=== PATIENT | female | born 1935 | race Caucasian/White ===

== ENCOUNTER → 2021-10-05 13:26 | Outpatient (CLI) | payer MEDICARE, OTHER, SELFPAY ==
--- NOTE | 2021-10-05 | DI.CT.S_ITS ---
PROCEDURE: CT SOFT TISSUE NECK W CON INDICATIONS: MALIGNANT MELANOMA TECHNIQUE: After the administration of intravenous contrast, 3.0 mm axial sections acquired from the sella to the aortic arch. Additional oblique axial 3.0 mm sections acquired through the pharynx. 3 mm thick coronal and sagittal reformats were generated. For radiation dose reduction, the following was used: automated exposure control. COMPARISON: [facility], CT, CT CHEST ABD PEL W CON, 10/05/2021, 15:49. [facility], CT, CT HEAD/BRAIN WO/W CON, 10/05/2021, 15:49. FINDINGS: Image quality: There is artifact associated with the metallic hardware. Lymph nodes: No enlarged lymph nodes seen throughout the neck. Vessels: Visualized vasculature appears patent. Incidental note is made of a common origin of the right brachiocephalic artery and the left common carotid artery (bovine type arch). This is considered to be a developmental variant of no clinical consequence. Neck spaces: The oropharynx, nasopharynx, and pharynx demonstrate no mucosal lesions. The vocal cords, false vocal cords, pyriform sinuses, epiglottis, vallecula, and tongue base all appear normal. Extramucosal spaces appear unremarkable. Glands: The parotid and submandibular glands appear normal. Thyroid gland is prominent, without a focally suspicious lesion. Miscellaneous: Visualized brain and orbits appear normal. Lung apices appear clear. Superficial soft tissues appear normal. Bones: No suspicious bony lesions. Visualized sinuses and mastoids appear unremarkable. Left shoulder arthroplasty hardware is seen. Focal right shoulder degenerative change is seen. Moderate cervical spine degenerative change can be seen. IMPRESSION: Limited study demonstrating no findings of metastatic disease or enlarged lymph nodes. Incidental note is made of: Prominent thyroid gland. Left shoulder arthroplasty hardware Bovine type aortic branching pattern. Dictated by: Darron Dumont M.D. on 10/05/2021 at 16:30 Approved by: Darron Dumont M.D. on 10/05/2021 at 16:32
--- NOTE | 2021-10-05 13:34 | DI.CT.S_ITS ---
PROCEDURE: CT CHEST ABD PEL W CON INDICATIONS: Malignant melanoma of other parts of face TECHNIQUE: After the administration of oral and intravenous contrast, axial sections acquired from the supraclavicular neck to the pubic symphysis. Coronal and sagittal reformats were performed. For radiation dose reduction, the following was used: automated exposure control, adjustment of mA and/or kV according to patient size. COMPARISON: [facility], CT, CT HEAD/BRAIN WO/W CON, 10/05/2021, 15:49. [facility], CT, CT SOFT TISSUE NECK W CON, 10/05/2021, 15:49. FINDINGS: Image quality: There is artifact associated with the metallic hardware. CHEST: Lower Neck: No enlarged lymph nodes. Thyroid: Thyroid is prominent size, without focal lesion. Axillae: No enlarged lymph nodes. Chest Wall: Unremarkable. Lungs and Airways: No consolidation or suspicious nodules. Mild scattered areas of ground-glass opacity can be seen within the lungs. Pleura: No pneumothorax or pleural effusions. Heart: Heart size is normal. No pericardial effusion. Thoracic Vessels: The aorta and pulmonary arteries demonstrate normal size. Mediastinum and Margaret: No enlarged lymph nodes. Esophagus: No wall thickening. No hiatal hernia. ABDOMEN: Liver: There is a right anterior water density liver cyst, without enhancement measures 2.6 cm and 14 Hounsfield units. Gallbladder: Removed Biliary ducts: The common bile duct is prominent at 1.6 cm. Pancreas: Unremarkable. Spleen: Unremarkable. Adrenal Glands: Unremarkable. Kidneys and Ureters: At the inferior pole of the left kidney, there is a simple cyst seen that measures 12 Hounsfield units and 5.5 cm. The kidneys enhance symmetrically and demonstrate no hydronephrosis. Stomach and Bowel: Stomach, small bowel loops, and colon are unremarkable. Distal colonic diverticulosis is seen, without findings of active diverticulitis. Peritoneum: No abnormal intraperitoneal fluid. No free air. Ventral Wall: No hernia. Abdominal Nodes: No retroperitoneal or mesenteric adenopathy by size criteria. Vessels: Aorta and inferior vena cava are normal in size. Atherosclerotic calcification is noted. PELVIS: Pelvic Organs: The uterus is atrophic and considered to be normal for age. No adnexal masses are seen on either side. Bladder: Unremarkable. Pelvic Nodes: No enlarged lymph nodes. Miscellaneous: No inguinal hernias are seen. Bones: Degenerative changes are seen throughout, including involving the right shoulder. Left shoulder arthroplasty hardware is seen. Accentuated thoracic kyphosis is seen. There is moderate dextroconvex thoracolumbar scoliosis. Left hip arthroplasty hardware is seen. IMPRESSION: No findings of metastatic disease are seen. No suspicious pulmonary nodules are seen. Scattered bowel areas of ground-glass opacity can be seen within the lungs, which are most likely related to mild pulmonary edema. Cholecystectomy, with a prominent common bile duct, measuring 1.6 cm. Incidental note is made of: Prominent thyroid size, without a significant focal abnormality seen. Focal right shoulder degenerative change Left shoulder arthroplasty hardware Prominent simple left renal cyst Diverticulosis, without active diverticulitis Moderate dextroconvex thoracolumbar scoliosis Left hip arthroplasty hardware Dictated by: Darron Dumont M.D. on 10/05/2021 at 15:47 Approved by: Darron Dumont M.D. on 10/05/2021 at 15:52
--- NOTE | 2021-10-05 13:34 | DI.CT.S_ITS ---
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 For radiation dose reduction, the following was used: automated exposure control, adjustment of mA and/or kV according to patient size. COMPARISON: [facility], CT, CT SOFT TISSUE NECK W CON, 10/05/2021, 15:49. [facility], CT, CT CHEST ABD PEL W CON, 10/05/2021, 15:49. FINDINGS: Image quality: Excellent. CSF spaces: Basal cisterns are patent. No extra-axial fluid collections. Ventricles are symmetric in size and shape. Brain: No midline shift. No intracranial bleeds or masses. No abnormal intracranial enhancement. There is cerebral volume loss for age. There is periventricular white matter chronic small vessel ischemic change. There is intracranial internal carotid artery atherosclerosis. Skull and face: There is a prominently enhancing soft tissue scalp mass seen involving the left temporal region, as on series 2 image 19 and on series 9, image 15 that measures up to 2.7 cm. Calvarium and visualized facial bones appear intact, without suspicious lesions. Sinuses: Visualized sinuses and mastoids are clear. IMPRESSION: Left temporal scalp mass seen which demonstrates prominent enhancement and measures up to 2.7 cm, which is consistent with this patient's known primary mass. To the limits of CT, no intracranial masses or abnormal enhancement can be seen. Dictated by: Darron Dumont M.D. on 10/05/2021 at 15:45 Approved by: Darron Dumont M.D. on 10/05/2021 at 15:47
[2021-10-05 14:02] LABS: BUN Creatinine Ratio 34.4 (6-22); Blood Urea Nitrogen 31 mg/dL (7-17); Estimated Glomerular Filt Rate > 60 mL/min (>60)
== END ==
PROVIDERS: PCP Student in an Organized Health Care Education/Training Program; Referring Provider Dermatology; Visit Provider Dermatology
DX: C43.4 Malignant melanoma of scalp and neck; N28.1 Cyst of kidney, acquired; K57.90 Diverticulosis of intestine, part unspecified, without perforation or abscess without bleeding; Z90.49 Acquired absence of other specified parts of digestive tract; Z96.612 Presence of left artificial shoulder joint; Z96.642 Presence of left artificial hip joint
CPT/HCPCS: 36415; 70470; 70491; 71260; 74177; 82565; 84520; Q9967

== ENCOUNTER → 2021-10-14 13:50 | Outpatient (CLI) | payer MEDICARE, OTHER, SELFPAY | PROVIDERS: PCP Student in an Organized Health Care Education/Training Program; Referring Provider Dermatology; Visit Provider Family Medicine | DX: T81.89XA Other complications of procedures, not elsewhere classified, initial encounter (principal); S01.00XA Unspecified open wound of scalp, initial encounter; M06.9 Rheumatoid arthritis, unspecified; Z79.899 Other long term (current) drug therapy; Z85.820 Personal history of malignant melanoma of skin | CPT/HCPCS: 11042; 11045; 99212 ==

== ENCOUNTER → 2021-10-19 11:35 | Outpatient (CLI) | payer MEDICARE, OTHER, SELFPAY | PROVIDERS: PCP Student in an Organized Health Care Education/Training Program; Referring Provider Student in an Organized Health Care Education/Training Program; Visit Provider Family Medicine | DX: T81.89XA Other complications of procedures, not elsewhere classified, initial encounter (principal); S01.00XA Unspecified open wound of scalp, initial encounter; M06.9 Rheumatoid arthritis, unspecified; Z85.820 Personal history of malignant melanoma of skin; Z79.899 Other long term (current) drug therapy | CPT/HCPCS: 11042; 97607 ==

== ENCOUNTER → 2021-10-21 11:04 | Outpatient (CLI) | payer MEDICARE, OTHER, SELFPAY | PROVIDERS: PCP Student in an Organized Health Care Education/Training Program; Referring Provider Dermatology; Visit Provider Family Medicine | DX: T81.89XA Other complications of procedures, not elsewhere classified, initial encounter (principal); S01.00XA Unspecified open wound of scalp, initial encounter | CPT/HCPCS: 97607 ==

== ENCOUNTER → 2021-10-26 13:10 | Outpatient (CLI) | payer MEDICARE, OTHER, SELFPAY | PROVIDERS: PCP Student in an Organized Health Care Education/Training Program; Referring Provider Student in an Organized Health Care Education/Training Program; Visit Provider Family Medicine | DX: T81.89XA Other complications of procedures, not elsewhere classified, initial encounter (principal); S01.00XA Unspecified open wound of scalp, initial encounter; M06.9 Rheumatoid arthritis, unspecified; Z85.820 Personal history of malignant melanoma of skin; Z79.899 Other long term (current) drug therapy | CPT/HCPCS: 97607; 99212 ==

== ENCOUNTER → 2021-11-02 15:10 | Outpatient (CLI) | payer MEDICARE, OTHER, SELFPAY | PROVIDERS: PCP Student in an Organized Health Care Education/Training Program; Referring Provider Dermatology; Visit Provider Family Medicine | DX: T81.89XA Other complications of procedures, not elsewhere classified, initial encounter (principal); S01.00XA Unspecified open wound of scalp, initial encounter; M06.9 Rheumatoid arthritis, unspecified; Z85.820 Personal history of malignant melanoma of skin; Z79.899 Other long term (current) drug therapy | CPT/HCPCS: 99212; 99213 ==

== ENCOUNTER → 2021-11-09 12:00 | Outpatient (CLI) | payer MEDICARE, OTHER, SELFPAY | PROVIDERS: PCP Student in an Organized Health Care Education/Training Program; Referring Provider Dermatology; Visit Provider Family Medicine | DX: T81.89XA Other complications of procedures, not elsewhere classified, initial encounter (principal); S01.00XA Unspecified open wound of scalp, initial encounter; M06.9 Rheumatoid arthritis, unspecified; Z85.820 Personal history of malignant melanoma of skin | CPT/HCPCS: 11042; 99212 ==

== ENCOUNTER → 2021-11-12 13:31 | Outpatient (CLI) | payer MEDICARE, OTHER, SELFPAY | PROVIDERS: PCP Student in an Organized Health Care Education/Training Program; Referring Provider Student in an Organized Health Care Education/Training Program; Visit Provider Family Medicine | DX: T81.31XA Disruption of external operation (surgical) wound, not elsewhere classified, initial encounter (principal); S01.80XA Unspecified open wound of other part of head, initial encounter | CPT/HCPCS: 99212 ==

== ENCOUNTER → 2021-11-17 14:57 | Outpatient (CLI) | payer MEDICARE, OTHER, SELFPAY | PROVIDERS: PCP Student in an Organized Health Care Education/Training Program; Referring Provider Student in an Organized Health Care Education/Training Program; Visit Provider Family Medicine | DX: T81.89XA Other complications of procedures, not elsewhere classified, initial encounter (principal); S01.00XA Unspecified open wound of scalp, initial encounter | CPT/HCPCS: 99213 ==

== ENCOUNTER → 2021-12-01 15:28 | Outpatient (CLI) | payer MEDICARE, OTHER, SELFPAY | PROVIDERS: PCP Student in an Organized Health Care Education/Training Program; Referring Provider Student in an Organized Health Care Education/Training Program; Visit Provider Family Medicine | DX: S01.00XA Unspecified open wound of scalp, initial encounter (principal); M06.9 Rheumatoid arthritis, unspecified; Z85.820 Personal history of malignant melanoma of skin | CPT/HCPCS: 97607; 99212 ==

== ENCOUNTER → 2021-12-07 13:36 | Outpatient (CLI) | payer MEDICARE, OTHER, SELFPAY | PROVIDERS: PCP Student in an Organized Health Care Education/Training Program; Referring Provider Student in an Organized Health Care Education/Training Program; Visit Provider Family Medicine | DX: S01.00XA Unspecified open wound of scalp, initial encounter (principal); Z85.820 Personal history of malignant melanoma of skin; M06.9 Rheumatoid arthritis, unspecified | CPT/HCPCS: 99212 ==

== ENCOUNTER → 2021-12-15 14:26 | Outpatient (CLI) | payer MEDICARE, OTHER, SELFPAY | PROVIDERS: PCP Student in an Organized Health Care Education/Training Program; Referring Provider Student in an Organized Health Care Education/Training Program; Visit Provider Family Medicine | DX: S01.00XA Unspecified open wound of scalp, initial encounter (principal); Z85.820 Personal history of malignant melanoma of skin; M06.9 Rheumatoid arthritis, unspecified | CPT/HCPCS: 99212; 99213 ==

== ENCOUNTER → 2021-12-30 15:26 | Outpatient (CLI) | payer MEDICARE, OTHER, SELFPAY | PROVIDERS: PCP Student in an Organized Health Care Education/Training Program; Referring Provider Dermatology; Visit Provider Family Medicine | DX: S01.00XA Unspecified open wound of scalp, initial encounter (principal); Z85.820 Personal history of malignant melanoma of skin; M06.9 Rheumatoid arthritis, unspecified | CPT/HCPCS: 99212; 99213 ==

== ENCOUNTER → 2022-01-13 14:11 | Outpatient (CLI) | payer MEDICARE, OTHER, SELFPAY | PROVIDERS: PCP Student in an Organized Health Care Education/Training Program; Referring Provider Student in an Organized Health Care Education/Training Program; Visit Provider Family Medicine | DX: S01.00XA Unspecified open wound of scalp, initial encounter (principal); Z85.820 Personal history of malignant melanoma of skin; M06.9 Rheumatoid arthritis, unspecified | CPT/HCPCS: 97607; 99212; 99213 ==

== ENCOUNTER → 2022-01-20 11:41 | Outpatient (CLI) | payer MEDICARE, OTHER, SELFPAY | PROVIDERS: PCP Student in an Organized Health Care Education/Training Program; Referring Provider Student in an Organized Health Care Education/Training Program; Visit Provider Family Medicine | DX: S01.00XA Unspecified open wound of scalp, initial encounter (principal); T81.89XA Other complications of procedures, not elsewhere classified, initial encounter; L08.9 Local infection of the skin and subcutaneous tissue, unspecified; M06.9 Rheumatoid arthritis, unspecified; Z85.820 Personal history of malignant melanoma of skin | CPT/HCPCS: 11042; 87070; 87075; 87077; 87186; 87205; 99213 ==

== ENCOUNTER → 2022-01-27 14:01 | Outpatient (CLI) | payer MEDICARE, OTHER, SELFPAY | PROVIDERS: PCP Student in an Organized Health Care Education/Training Program; Referring Provider Student in an Organized Health Care Education/Training Program; Visit Provider Family Medicine | DX: S01.00XA Unspecified open wound of scalp, initial encounter (principal); Z85.820 Personal history of malignant melanoma of skin; M06.9 Rheumatoid arthritis, unspecified; L08.9 Local infection of the skin and subcutaneous tissue, unspecified; B95.62 Methicillin resistant Staphylococcus aureus infection as the cause of diseases classified elsewhere | CPT/HCPCS: 99213; 99214 ==

== ENCOUNTER → 2022-02-03 14:56 | Outpatient (CLI) | payer MEDICARE, OTHER, SELFPAY | PROVIDERS: PCP Student in an Organized Health Care Education/Training Program; Referring Provider Student in an Organized Health Care Education/Training Program; Visit Provider Family Medicine | DX: S01.00XA Unspecified open wound of scalp, initial encounter (principal); M06.9 Rheumatoid arthritis, unspecified; L08.9 Local infection of the skin and subcutaneous tissue, unspecified; B95.62 Methicillin resistant Staphylococcus aureus infection as the cause of diseases classified elsewhere; Z85.820 Personal history of malignant melanoma of skin | CPT/HCPCS: 99212; 99213 ==

== ENCOUNTER → 2022-02-10 11:29 | Outpatient (CLI) | payer MEDICARE, OTHER, SELFPAY | PROVIDERS: PCP Student in an Organized Health Care Education/Training Program; Referring Provider Student in an Organized Health Care Education/Training Program; Visit Provider Family Medicine | DX: S01.00XA Unspecified open wound of scalp, initial encounter (principal); M06.9 Rheumatoid arthritis, unspecified; Z85.820 Personal history of malignant melanoma of skin | CPT/HCPCS: 97597; 99212 ==

== ENCOUNTER → 2022-02-17 09:50 | Outpatient (CLI) | payer MEDICARE, OTHER, SELFPAY | PROVIDERS: PCP Family Medicine; Referring Provider Family Medicine; Visit Provider Family Medicine | DX: S01.00XA Unspecified open wound of scalp, initial encounter (principal); M06.9 Rheumatoid arthritis, unspecified; Z85.820 Personal history of malignant melanoma of skin | CPT/HCPCS: 99212 ==

== ENCOUNTER → 2022-02-24 10:36 | Outpatient (CLI) | payer MEDICARE, OTHER, SELFPAY | PROVIDERS: PCP Family Medicine; Referring Provider Dermatology; Visit Provider Family Medicine | DX: S01.00XA Unspecified open wound of scalp, initial encounter (principal); Z85.820 Personal history of malignant melanoma of skin; M06.9 Rheumatoid arthritis, unspecified | CPT/HCPCS: 15275; Q4196 ==

== ENCOUNTER → 2022-03-03 10:05 | Outpatient (CLI) | payer MEDICARE, OTHER, SELFPAY | PROVIDERS: PCP Family Medicine; Referring Provider Family Medicine; Visit Provider Family Medicine | DX: S01.00XA Unspecified open wound of scalp, initial encounter (principal); T81.89XA Other complications of procedures, not elsewhere classified, initial encounter; Z85.820 Personal history of malignant melanoma of skin; M06.9 Rheumatoid arthritis, unspecified | CPT/HCPCS: 15275; Q4196 ==

== ENCOUNTER → 2022-03-10 09:49 | Outpatient (CLI) | payer MEDICARE, OTHER, SELFPAY | PROVIDERS: PCP Family Medicine; Referring Provider Family Medicine; Visit Provider Family Medicine | DX: S01.00XD Unspecified open wound of scalp, subsequent encounter (principal); Z85.820 Personal history of malignant melanoma of skin; M06.9 Rheumatoid arthritis, unspecified | CPT/HCPCS: 99212; 99213 ==

== ENCOUNTER → 2022-03-21 08:55 | Outpatient (CLI) | payer MEDICARE, OTHER, SELFPAY ==
--- NOTE | 2022-03-21 | DI.US.S_ITS ---
PROCEDURE: US ARTERIAL DUPLEX LE LT INDICATIONS: DECREASED PEDAL PULSE TECHNIQUE: Color and pulse Doppler interrogation was performed of the left lower extremity arterial system, with image documentation. COMPARISON: None. FINDINGS: Limitations are present secondary to body habitus and patient positioning factors. Common femoral artery: 178 cm/sec, with triphasic flow. Deep femoral artery: 113 cm/sec, with triphasic flow. Proximal superficial femoral artery: 122 cm/sec, with biphasic flow. Mid superficial femoral artery: 111 cm/sec, with biphasic flow. Distal superficial femoral artery: 67 cm/sec, with biphasic flow. Popliteal artery: 75 cm/sec, with biphasic flow. Posterior tibial artery: 71 cm/sec, with biphasic flow. Anterior tibial artery/dorsalis pedis: 47 cm/sec, with monophasic flow. Padgett-scale imaging description: Moderate plaque IMPRESSION: 1. No significant outflow stenosis . 2. 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 Dictated by: Dwight Young M.D. on 03/21/2022 at 10:29 Approved by: Dwight Young M.D. on 03/21/2022 at 10:31
--- NOTE | 2022-03-21 | DI.RAD.S_ITS ---
PROCEDURE: XR KNEE RT 3V INDICATIONS: right knee pain TECHNIQUE: 3 views of the knee were acquired. COMPARISON: None. FINDINGS: Bones: No fractures or dislocations. No suspicious bony lesions. Knee arthroplasty is present. Hardware is intact. Soft tissues: No joint effusion. No suspicious soft tissue calcifications. IMPRESSION: Arthroplasty as above. Otherwise, unremarkable exam. Dictated by: Tania Dockery M.D. on 03/21/2022 at 15:14 Approved by: Tania Dockery M.D. on 03/21/2022 at 15:17
== END ==
PROVIDERS: PCP Family Medicine; Referring Provider Podiatrist; Visit Provider Podiatrist
DX: I70.202 Unspecified atherosclerosis of native arteries of extremities, left leg (principal); R09.89 Other specified symptoms and signs involving the circulatory and respiratory systems; M25.561 Pain in right knee; Z96.653 Presence of artificial knee joint, bilateral
CPT/HCPCS: 73562; 93926

== ENCOUNTER → 2022-04-11 16:14 | Outpatient (ROUT) | payer MEDICARE, OTHER, SELFPAY | PROVIDERS: PCP Family Medicine; Visit Provider Physician Assistant | DX: N89.8 Other specified noninflammatory disorders of vagina (principal) | CPT/HCPCS: 87798 ==

== ENCOUNTER 2022-04-18 07:46 | Observation (INO) | payer MEDICARE, OTHER, SELFPAY ==
[2022-04-18] VITALS (21 sets, daily range): BP systolic 111–146; BP diastolic 56–70; PULSE 66–97; RESP 18; TEMP 36.8; O2SAT 88–99; BMI 27.4
--- NOTE | 2022-04-18 07:51 | DI.RAD.S_ITS ---
PROCEDURE: XR HIP W PEL IF DONE LT 2V INDICATIONS: fall TECHNIQUE: AP pelvis with lateral view(s) of the left hip(s) and left femur. COMPARISON: [facility], CT, CT CHEST ABD PEL W CON, 10/05/2021, 15:49. FINDINGS: Bones: Left hip arthroplasty projects in the expected location. Plate and screw fixation along the left femur. Left knee arthroplasty. Fracture of the distal left femur which appears chronic. Pelvic ring appears intact. No suspicious bony lesions. Moderate right hip DJD. Soft tissues: The visualized bowel gas pattern is normal. No suspicious soft tissue calcifications. IMPRESSION: No acute fracture is identified. Left hip arthroplasty. Left femur ORIF. Left knee arthroplasty. Chronic appearing fracture of the distal left femur. Dictated by: Francesco Lorenzana M.D. on 04/18/2022 at 8:42 Approved by: Francesco Lorenzana M.D. on 04/18/2022 at 8:46
--- NOTE | 2022-04-18 07:51 | DI.RAD.S_ITS ---
PROCEDURE: XR CHEST 1V INDICATIONS: fall on the TECHNIQUE: One view of the chest was acquired. COMPARISON: [facility], CT, CT CHEST ABD PEL W CON, 10/05/2021, 15:49. FINDINGS: Surgical changes and devices: Left shoulder arthroplasty. Lungs and pleura: Lungs are clear. No pleural effusions or pneumothorax. Mediastinum: Mediastinal contours appear normal. Heart size is normal. Bones and chest wall: No suspicious bony lesions. Right shoulder DJD. Overlying soft tissues appear unremarkable. IMPRESSION: No acute cardiopulmonary abnormality. Dictated by: Francesco Lorenzana M.D. on 04/18/2022 at 8:40 Approved by: Francesco Lorenzana M.D. on 04/18/2022 at 8:42
--- NOTE | 2022-04-18 07:53 | ED_ITS ---
HPI - Fall <DO Thuan Barton Last Filed: 04/20/22 07:14> General Chief Complaint: Fall Stated Complaint: Fall Time Seen by Provider: 04/18/22 07:51 History of Present Illness HPI Narrative: Patient is a 87-year-old female with history of anemia, anxiety, osteoarthritis, osteopenia presenting today after a ground level fall 2 nights ago. She says she was using her walker in the shower she had assistance she went to kick a trash can when she landed on her left hip. She has been ambulatory but it is quite painful for her. She denies hitting her head no loss of consciousness. She is not on any antiplatelet or anticoagulation medication. She has minimal neck pain. No shortness of breath dizziness lightheadedness chest pain or palpitations. She says every time she tries to walk now it is excruciating and she is unable to bear weight. She previously had hip replacement. Related Data Home Medications Medication Instructions Recorded Confirmed ascorbic acid (vitamin C) 250 mg 250 mg PO QAM 11/24/21 04/18/22 tablet cholecalciferol (vitamin D3) 50 50 mcg PO DAILY 11/24/21 04/18/22 mcg (2,000 unit) capsule famotidine 20 mg tablet 20 mg PO QAM 11/24/21 04/18/22 folic acid 1 mg tablet 1 mg PO QAM 11/24/21 04/18/22 polyethylene glycol 3350 17 17 g PO DAILY PRN Constipation 11/24/21 04/18/22 gram/dose oral powder sertraline 100 mg tablet 100 mg PO BEDTIME 11/24/21 04/18/22 acetaminophen 325 mg capsule 650 mg PO Q4H PRN Pain (Scale 02/14/22 04/18/22 Score 4-6) Allergies Allergy/AdvReac Type Severity Reaction Status Date / Time No Known Drug Allergies Allergy Verified 04/18/22 07:52 Review of Systems <DO Thuan Barton Last Filed: 04/20/22 07:14> Review of Systems ROS Unobtainable: All systems reviewed & are unremarkable except as noted in HPI and below Patient History <DO Thuan Barton Last Filed: 04/20/22 07:14> Medical History Anemia (~2021) Ankle pain (~2019) Anxiety (~2018) Cataracts, bilateral Chicken pox Fall at home Foot pain Fractures Gait instability Hearing loss (~2012) Measles Mumps Osteoarthritis Osteopenia Restless leg syndrome (~2020) Retinal detachment (~2004) Rheumatoid arthritis Shoulder pain Uses walker Vertigo Weakness Surgical History Anesthesia Fracture of upper leg History of ankle surgery History of bilateral knee replacement History of left hip replacement History of left shoulder replacement Family History Granddaughter ANA M-19 Mother Alcoholism Social History household members: caregiver and none Smoking Status: Never smoker alcohol intake: current Exam <Janey Love DO - Last Filed: 04/20/22 07:14> Initial Vital Signs Initial Vital Signs: Vital Signs Pulse Rate 94 H 04/18/22 07:48 Blood Pressure 146/67 H 04/18/22 07:48 Pulse Oximetry 93 04/18/22 07:48 GENERAL: Alert pleasant 87-year-old female HEENT: Head atraumatic,EOMI, pupils reactive, face symmetric NECK: Minimal tenderness full rotation flexion and extension CARDIOVASCULAR: Regular rate and rhythm without murmurs, rubs or gallops. RESPIRATORY: Breath sounds equal bilaterally, no wheezes rales or rhonchi. ABDOMEN: Soft, nontender. Normoactive bowel sounds all 4 quadrants. No guarding or rebound. EXTREMITIES: Normal range of motion, no clubbing or edema. Neurovascularly intact Pelvis tender with internal external rotation no tenderness to the iliac crest. No contusion. Distal pedal pulses intact. NEUROLOGICAL: Alert and oriented x4. SKIN: Warm, dry, no laceration, no petechiae, no rashes or lesions. <Caleb Jordan DO - Last Filed: 04/19/22 05:39> Initial Vital Signs Initial Vital Signs: Vital Signs Pulse Rate 94 H 04/18/22 07:48 Blood Pressure 146/67 H 04/18/22 07:48 Pulse Oximetry 93 04/18/22 07:48 Course <Janey Love DO - Last Filed: 04/20/22 07:14> Orders Ordered: Acetaminophen (Acetaminophen 325 Mg Tablet) 650 mg PO Q6H PRN PRN Reason: Fever/Mild Pain (1-3) Hydrocodone Bitart/Acetaminophen (Hydrocodone/Acet 5/325 Tablet) 1 tab PO Q4H PRN PRN Reason: Pain, Moderate (4-10 Last Admin: 04/20/22 04:03 Dose: 1 tab Documented By: Admin: 04/19/22 09:13 Dose: 1 tab Documented By: IMAN Calcium Carbonate (Calcium Carbonate 500 Mg Tab) 1,000 mg PO Q4HR PRN PRN Reason: Dyspepsia Docusate Sodium (Docusate 100 Mg Capsule) 100 mg PO BID [facility] Last Admin: 04/19/22 20:19 Dose: 100 mg Documented By: Admin: 04/19/22 09:05 Dose: 100 mg Documented By: IMAN Famotidine (Famotidine 20 Mg Tablet) 20 mg PO DAILY [facility] Last Admin: 04/19/22 09:05 Dose: 20 mg Documented By: IMAN Folic Acid (Folic Acid 1 Mg Tablet) 1 mg PO DAILY [facility] Last Admin: 04/19/22 09:05 Dose: 1 mg Documented By: IMAN Lidocaine (Lidocaine Patch 1 Each Adh..Patch) 1 each TOP DAILY PRN PRN Reason: Pain, Moderate (1-10 Last Admin: 04/19/22 09:15 Dose: 1 each Documented By: IMAN Lidocaine (Remove Lidocaine Patch) 1 each TOP BEDTIME [facility] Last Admin: 04/19/22 20:20 Dose: Not Given Documented By: KELTON Naloxone HCl (Naloxone 0.4 Mg/Ml Vial) 0.2 mg IV Q2MIN PRN PRN Reason: Opiate Reversal Ondansetron HCl (Ondansetron 4 Mg/2 Ml Inj) 4 mg IV Q4HR PRN PRN Reason: Nausea And Vomiting Polyethylene Glycol (Polyethylene Glycol 3350 17 Gm Powd.Pack) 17 gm PO DAILY PRN PRN Reason: constipation Prednisone (Prednisone 20 Mg Tablet) 30 mg PO DAILY [facility] Stop: 04/25/22 08:59 Last Admin: 04/19/22 09:05 Dose: 30 mg Documented By: IMAN Rivaroxaban (Rivaroxaban 10 Mg Tablet) 15 mg PO BIDWM [facility] Stop: 05/12/22 22:00 Rivaroxaban (Rivaroxaban 10 Mg Tablet) 20 mg PO DAILY [facility] Sennosides (Sennosides 8.6 Mg Tablet) 17.2 mg PO BEDTIME [facility] Last Admin: 04/19/22 20:20 Dose: 17.2 mg Documented By: KELTON Sertraline HCl (Sertraline 50 Mg Tablet) 100 mg PO BEDTIME [facility] Last Admin: 04/19/22 20:20 Dose: 100 mg Documented By: Admin: 04/18/22 22:11 Dose: 100 mg Documented By: PAUL Sodium Chloride (Sodium Chloride 0.9% Flush) 10 ml IV PRN PRN PRN Reason: Flush Sodium Chloride (Sodium Chloride 0.9% Flush) 10 ml IV BID [facility] Last Admin: 04/19/22 20:20 Dose: 10 ml Documented By: KELTON Discontinued Medications Hydrocodone Bitart/Acetaminophen (Hydrocodone/Acet 5/325 Tablet) 1 tab PO NOW ONE Stop: 04/18/22 13:03 Last Admin: 04/18/22 13:05 Dose: 1 tab Documented By: SABINE Hydrocodone Bitart/Acetaminophen (Hydrocodone/Acet 5/325 Tablet) 1 tab PO NOW ONE Stop: 04/18/22 21:51 Last Admin: 04/18/22 22:13 Dose: 1 tab Documented By: PAUL Hydrocodone Bitart/Acetaminophen (Hydrocodone/Acet 5/325 Tablet) 1 tab PO Q6HR [facility] Last Admin: 04/19/22 17:10 Dose: 1 tab Documented By: Admin: 04/19/22 12:46 Dose: 1 tab Documented By: IMAN Enoxaparin Sodium (Enoxaparin 40 Mg/0.4 Ml Syringe) 75 mg 1 mg/kg (75 mg) SUBCUT BID [facility] Enoxaparin Sodium (Enoxaparin 40 Mg/0.4 Ml Syringe) 75 mg 1 mg/kg (75 mg) SUBCUT NOW ONE Stop: 04/19/22 05:42 Last Admin: 04/19/22 05:53 Dose: 75 mg Documented By: YAZMIN Enoxaparin Sodium (Enoxaparin 80 Mg/0.8 Ml Syringe) 75 mg SUBCUT BID [facility] Stop: 04/22/22 08:59 Last Admin: 04/19/22 20:19 Dose: 75 mg Documented By: KELTON Morphine Sulfate (Morphine 2 Mg/Ml Inj) 2 mg IV NOW ONE Stop: 04/18/22 08:35 Last Admin: 04/18/22 08:40 Dose: 2 mg Documented By: SABINE Ondansetron HCl (Ondansetron 4 Mg/2 Ml Inj) 4 mg IV NOW ONE Stop: 04/18/22 08:35 Last Admin: 04/18/22 08:40 Dose: 4 mg Documented By: SABINE Ondansetron HCl (Ondansetron 4 Mg Odt) 4 mg PO Q6HR PRN PRN Reason: nausea/vomiting Stop: 04/20/22 00:00 Last Admin: 04/19/22 09:05 Dose: 4 mg Documented By: Admin: 04/18/22 22:11 Dose: 4 mg Documented By: PAUL Polyethylene Glycol (Polyethylene Glycol 3350 17 Gm Powd.Pack) 17 gm PO DAILY PRN PRN Reason: Constipation Stop: 04/20/22 00:00 Vital Signs Vital signs: Vital Signs - 8 hr 04/18/22 22:00 04/18/22 22:00 04/18/22 22:30 Pulse Rate 76 Blood Pressure 114/59 L 128/58 L Pulse Oximetry Oxygen Delivery Method Oxygen Flow Rate 04/18/22 22:30 04/18/22 23:00 04/18/22 23:00 Pulse Rate 79 77 Blood Pressure 114/58 L Pulse Oximetry 97 97 Oxygen Delivery Method Oxygen Flow Rate 04/18/22 23:30 04/18/22 23:30 04/19/22 00:00 Pulse Rate 80 81 Blood Pressure 111/56 L Pulse Oximetry 96 95 Oxygen Delivery Method Oxygen Flow Rate 04/19/22 00:01 04/19/22 00:01 04/19/22 00:30 Pulse Rate 77 Blood Pressure 116/56 L 103/53 L Pulse Oximetry 96 Oxygen Delivery Method Oxygen Flow Rate 04/19/22 00:30 04/19/22 01:00 04/19/22 01:01 Pulse Rate 72 76 92 H Blood Pressure Pulse Oximetry 95 96 97 Oxygen Delivery Method Nasal Cannula Oxygen Flow Rate 2 04/19/22 01:01 04/19/22 01:30 04/19/22 01:30 Pulse Rate 75 Blood Pressure 116/58 L 108/53 L Pulse Oximetry 95 Oxygen Delivery Method Oxygen Flow Rate 04/19/22 02:00 04/19/22 02:01 04/19/22 02:01 Pulse Rate 69 75 Blood Pressure 103/54 L Pulse Oximetry 96 97 Oxygen Delivery Method Oxygen Flow Rate 04/19/22 02:30 04/19/22 02:30 04/19/22 03:10 Pulse Rate 70 86 Blood Pressure 105/53 L Pulse Oximetry 96 98 Oxygen Delivery Method Oxygen Flow Rate 04/19/22 03:12 04/19/22 03:12 04/19/22 03:30 Pulse Rate 83 Blood Pressure 147/63 H 107/53 L Pulse Oximetry 98 Oxygen Delivery Method Oxygen Flow Rate 04/19/22 03:30 04/19/22 04:00 04/19/22 04:00 Pulse Rate 71 83 Blood Pressure 115/54 L Pulse Oximetry 96 98 Oxygen Delivery Method Oxygen Flow Rate <Caleb Jordan, DO - Last Filed: 04/19/22 05:39> Orders Ordered: Acetaminophen (Acetaminophen 325 Mg Tablet) 650 mg PO Q6H PRN PRN Reason: Fever/Mild Pain (1-3) Hydrocodone Bitart/Acetaminophen (Hydrocodone/Acet 5/325 Tablet) 1 tab PO Q4H PRN PRN Reason: Pain, Moderate (4-10 Last Admin: 04/20/22 04:03 Dose: 1 tab Documented By: Admin: 04/19/22 09:13 Dose: 1 tab Documented By: IMAN Calcium Carbonate (Calcium Carbonate 500 Mg Tab) 1,000 mg PO Q4HR PRN PRN Reason: Dyspepsia Docusate Sodium (Docusate 100 Mg Capsule) 100 mg PO BID [facility] Last Admin: 04/19/22 20:19 Dose: 100 mg Documented By: Admin: 04/19/22 09:05 Dose: 100 mg Documented By: IMAN Famotidine (Famotidine 20 Mg Tablet) 20 mg PO DAILY [facility] Last Admin: 04/19/22 09:05 Dose: 20 mg Documented By: IMAN Folic Acid (Folic Acid 1 Mg Tablet) 1 mg PO DAILY [facility] Last Admin: 04/19/22 09:05 Dose: 1 mg Documented By: IMAN Lidocaine (Lidocaine Patch 1 Each Adh..Patch) 1 each TOP DAILY PRN PRN Reason: Pain, Moderate (1-10 Last Admin: 04/19/22 09:15 Dose: 1 each Documented By: IMAN Lidocaine (Remove Lidocaine Patch) 1 each TOP BEDTIME [facility] Last Admin: 04/19/22 20:20 Dose: Not Given Documented By: KELTON Naloxone HCl (Naloxone 0.4 Mg/Ml Vial) 0.2 mg IV Q2MIN PRN PRN Reason: Opiate Reversal Ondansetron HCl (Ondansetron 4 Mg/2 Ml Inj) 4 mg IV Q4HR PRN PRN Reason: Nausea And Vomiting Polyethylene Glycol (Polyethylene Glycol 3350 17 Gm Powd.Pack) 17 gm PO DAILY PRN PRN Reason: constipation Prednisone (Prednisone 20 Mg Tablet) 30 mg PO DAILY [facility] Stop: 04/25/22 08:59 Last Admin: 04/19/22 09:05 Dose: 30 mg Documented By: IMAN Rivaroxaban (Rivaroxaban 10 Mg Tablet) 15 mg PO BIDWM [facility] Stop: 05/12/22 22:00 Rivaroxaban (Rivaroxaban 10 Mg Tablet) 20 mg PO DAILY [facility] Sennosides (Sennosides 8.6 Mg Tablet) 17.2 mg PO BEDTIME [facility] Last Admin: 04/19/22 20:20 Dose: 17.2 mg Documented By: KELTON Sertraline HCl (Sertraline 50 Mg Tablet) 100 mg PO BEDTIME [facility] Last Admin: 04/19/22 20:20 Dose: 100 mg Documented By: Admin: 04/18/22 22:11 Dose: 100 mg Documented By: PAUL Sodium Chloride (Sodium Chloride 0.9% Flush) 10 ml IV PRN PRN PRN Reason: Flush Sodium Chloride (Sodium Chloride 0.9% Flush) 10 ml IV BID [facility] Last Admin: 04/19/22 20:20 Dose: 10 ml Documented By: KELTON Discontinued Medications Hydrocodone Bitart/Acetaminophen (Hydrocodone/Acet 5/325 Tablet) 1 tab PO NOW ONE Stop: 04/18/22 13:03 Last Admin: 04/18/22 13:05 Dose: 1 tab Documented By: SABINE Hydrocodone Bitart/Acetaminophen (Hydrocodone/Acet 5/325 Tablet) 1 tab PO NOW ONE Stop: 04/18/22 21:51 Last Admin: 04/18/22 22:13 Dose: 1 tab Documented By: PAUL Hydrocodone Bitart/Acetaminophen (Hydrocodone/Acet 5/325 Tablet) 1 tab PO Q6HR [facility] Last Admin: 04/19/22 17:10 Dose: 1 tab Documented By: Admin: 04/19/22 12:46 Dose: 1 tab Documented By: IMAN Enoxaparin Sodium (Enoxaparin 40 Mg/0.4 Ml Syringe) 75 mg 1 mg/kg (75 mg) SUBCUT BID [facility] Enoxaparin Sodium (Enoxaparin 40 Mg/0.4 Ml Syringe) 75 mg 1 mg/kg (75 mg) SUBCUT NOW ONE Stop: 04/19/22 05:42 Last Admin: 04/19/22 05:53 Dose: 75 mg Documented By: YAZMIN Enoxaparin Sodium (Enoxaparin 80 Mg/0.8 Ml Syringe) 75 mg SUBCUT BID [facility] Stop: 04/22/22 08:59 Last Admin: 04/19/22 20:19 Dose: 75 mg Documented By: KELTON Morphine Sulfate (Morphine 2 Mg/Ml Inj) 2 mg IV NOW ONE Stop: 04/18/22 08:35 Last Admin: 04/18/22 08:40 Dose: 2 mg Documented By: SABINE Ondansetron HCl (Ondansetron 4 Mg/2 Ml Inj) 4 mg IV NOW ONE Stop: 04/18/22 08:35 Last Admin: 04/18/22 08:40 Dose: 4 mg Documented By: SABINE Ondansetron HCl (Ondansetron 4 Mg Odt) 4 mg PO Q6HR PRN PRN Reason: nausea/vomiting Stop: 04/20/22 00:00 Last Admin: 04/19/22 09:05 Dose: 4 mg Documented By: Admin: 04/18/22 22:11 Dose: 4 mg Documented By: PAUL Polyethylene Glycol (Polyethylene Glycol 3350 17 Gm Powd.Pack) 17 gm PO DAILY PRN PRN Reason: Constipation Stop: 04/20/22 00:00 Vital Signs Vital signs: Vital Signs - 8 hr 04/18/22 22:00 04/18/22 22:00 04/18/22 22:30 Pulse Rate 76 Blood Pressure 114/59 L 128/58 L Pulse Oximetry Oxygen Delivery Method Oxygen Flow Rate 04/18/22 22:30 04/18/22 23:00 04/18/22 23:00 Pulse Rate 79 77 Blood Pressure 114/58 L Pulse Oximetry 97 97 Oxygen Delivery Method Oxygen Flow Rate 04/18/22 23:30 04/18/22 23:30 04/19/22 00:00 Pulse Rate 80 81 Blood Pressure 111/56 L Pulse Oximetry 96 95 Oxygen Delivery Method Oxygen Flow Rate 04/19/22 00:01 04/19/22 00:01 04/19/22 00:30 Pulse Rate 77 Blood Pressure 116/56 L 103/53 L Pulse Oximetry 96 Oxygen Delivery Method Oxygen Flow Rate 04/19/22 00:30 04/19/22 01:00 04/19/22 01:01 Pulse Rate 72 76 92 H Blood Pressure Pulse Oximetry 95 96 97 Oxygen Delivery Method Nasal Cannula Oxygen Flow Rate 2 04/19/22 01:01 04/19/22 01:30 04/19/22 01:30 Pulse Rate 75 Blood Pressure 116/58 L 108/53 L Pulse Oximetry 95 Oxygen Delivery Method Oxygen Flow Rate 04/19/22 02:00 04/19/22 02:01 04/19/22 02:01 Pulse Rate 69 75 Blood Pressure 103/54 L Pulse Oximetry 96 97 Oxygen Delivery Method Oxygen Flow Rate 04/19/22 02:30 04/19/22 02:30 04/19/22 03:10 Pulse Rate 70 86 Blood Pressure 105/53 L Pulse Oximetry 96 98 Oxygen Delivery Method Oxygen Flow Rate 04/19/22 03:12 04/19/22 03:12 04/19/22 03:30 Pulse Rate 83 Blood Pressure 147/63 H 107/53 L Pulse Oximetry 98 Oxygen Delivery Method Oxygen Flow Rate 04/19/22 03:30 04/19/22 04:00 04/19/22 04:00 Pulse Rate 71 83 Blood Pressure 115/54 L Pulse Oximetry 96 98 Oxygen Delivery Method Oxygen Flow Rate MDM - Fall <Janey Love, DO - Last Filed: 04/20/22 07:14> Lab Data Result diagrams: 04/19/22 10:25 04/19/22 10:25 Labs: Lab Results 04/18/22 04/18/22 04/18/22 Range/Units 07:51 08:05 13:25 WBC 9.6 (4.5-11.0) X10^3/uL RBC 4.14 (4.0-5.2) X10^6/uL Hgb 12.1 (12.0-16.0) g/dL Hct 36.7 (36-46) % MCV 88.6 (80-100) fL MCH 29.1 (26-34) PG MCHC 32.8 (30-36) % RDW 14.6 (11.6-14.8) % Plt Count 215 (150-400) X10^3/uL Neut % (Auto) 71.6 (50-75) % Lymph % (Auto) 16.1 L (25-40) % [place] % (Auto) 9.6 (3-14) % Eos % (Auto) 1.8 L (2-4) % Baso % (Auto) 0.9 (0-2) % Neut # (Auto) 6900 (3092-9184) /uL Lymph # (Auto) 1500 (6786-5009) /uL [place] # (Auto) 900 (0-900) /uL Eos # (Auto) 200 (0-450) /uL Baso # (Auto) 100 (0-100) /uL D-Dimer (<500) ng/ml Sodium 138 (137-145) mmol/L Potassium 4.2 (3.4-5.1) mmol/L Chloride 103 (98-107) mmol/L Carbon Dioxide 26 (22-32) mmol/L BUN 28 H (7-17) mg/dL Creatinine 0.83 (0.52-1.04) mg/dL Estimated GFR > 60 (>60) mL/min BUN/Creatinine Ratio 33.7 H (6-22) Glucose 93 (80-110) mg/dL Calcium 9.6 (8.4-10.2) mg/dL Total Bilirubin 0.6 (0.2-1.3) mg/dL AST 24 (14-36) IU/L ALT 21 (<35) IU/L Alkaline Phosphatase 118 (38-126) U/L Total Creatine Kinase (30-135) U/L CK-MB (CK-2) CK-MB (CK-2) Rel Index Troponin I (0.01-0.034) ng/mL Total Protein 8.0 (6.3-8.2) g/dL Albumin 4.0 (3.5-5.0) g/dL Globulin 4.0 (1.7-4.1) g/dL Albumin/Globulin Ratio 1.0 (1.0-2.8) Urine Color Yellow Urine Appearance Clear Urine pH 5.5 (4.5-8.0) Ur Specific [place] 1.015 (1.000-1.035) Urine Protein Negative (Negative) Urine Glucose (UA) Negative (Negative) g/dL Urine Ketones Negative (NEGATIVE) Urine Occult Blood Trace-intact (Negative) Urine Nitrate Negative (Negative) Urine Bilirubin Negative (NEGATIVE) Urine Urobilinogen 0.2 (0.2) E.U./dL Ur Leukocyte Esterase Negative (NEGATIVE) Urine RBC 1-5/hpf (0-5/HPF) Urine WBC 0-1/hpf (0-5/HPF) Ur Squamous Epith Cells 0-1 /hpf (0-5/HPF) Amorphous Sediment 1+ Urine Bacteria None seen (None) Ur Culture Indicated? Cult not indicated Chlamy pneumoniae PCR (Not Detect) Adenovirus (PCR) (Not Detect) B. pertussis DNA (PCR) (Not Detecte) B.parapertussis DNA PCR (Not Detecte) Coronavirus OC43 (PCR) (Not Detect) Coronavirus HKU1 (PCR) (Not Detect) Coronavirus 229E (PCR) (Not Detect) SARS-CoV-2 (PCR) (Negative) Coronavirus NL63 (PCR) (Not Detect) Human Metapneumovir PCR (Not Detect) Influenza Type A (PCR) (Not Detect) Influenza Type B (PCR) (Not Detect) M. pneumoniae (PCR) (Not Detect) Parainfluenza 1 (PCR) (Not Detect) Parainfluenza 2 (PCR) (Not Detect) Parainfluenza 3 (PCR) (Not Detect) Parainfluenza 4 (PCR) (Not Detect) RSV (PCR) (Not Detect) Entero/Rhino (PCR) (Not Detect) 04/18/22 04/18/22 04/18/22 Range/Units 13:46 21:25 23:55 WBC 10.5 (4.5-11.0) X10^3/uL RBC 4.15 (4.0-5.2) X10^6/uL Hgb 12.1 (12.0-16.0) g/dL Hct 36.5 (36-46) % MCV 87.8 (80-100) fL MCH 29.1 (26-34) PG MCHC 33.1 (30-36) % RDW 14.8 (11.6-14.8) % Plt Count 204 (150-400) X10^3/uL Neut % (Auto) 78.0 H (50-75) % Lymph % (Auto) 10.9 L (25-40) % [place] % (Auto) 8.7 (3-14) % Eos % (Auto) 1.7 L (2-4) % Baso % (Auto) 0.7 (0-2) % Neut # (Auto) 8200 H (3886-3304) /uL Lymph # (Auto) 1200 (7962-6954) /uL [place] # (Auto) 900 (0-900) /uL Eos # (Auto) 200 (0-450) /uL Baso # (Auto) 100 (0-100) /uL D-Dimer (<500) ng/ml Sodium (137-145) mmol/L Potassium (3.4-5.1) mmol/L Chloride (98-107) mmol/L Carbon Dioxide (22-32) mmol/L BUN (7-17) mg/dL Creatinine (0.52-1.04) mg/dL Estimated GFR (>60) mL/min BUN/Creatinine Ratio (6-22) Glucose (80-110) mg/dL Calcium (8.4-10.2) mg/dL Total Bilirubin (0.2-1.3) mg/dL AST (14-36) IU/L ALT (<35) IU/L Alkaline Phosphatase (38-126) U/L Total Creatine Kinase (30-135) U/L CK-MB (CK-2) CK-MB (CK-2) Rel Index Troponin I (0.01-0.034) ng/mL Total Protein (6.3-8.2) g/dL Albumin (3.5-5.0) g/dL Globulin (1.7-4.1) g/dL Albumin/Globulin Ratio (1.0-2.8) Urine Color Urine Appearance Urine pH (4.5-8.0) Ur Specific [place] (1.000-1.035) Urine Protein (Negative) Urine Glucose (UA) (Negative) g/dL Urine Ketones (NEGATIVE) Urine Occult Blood (Negative) Urine Nitrate (Negative) Urine Bilirubin (NEGATIVE) Urine Urobilinogen (0.2) E.U./dL Ur Leukocyte Esterase (NEGATIVE) Urine RBC (0-5/HPF) Urine WBC (0-5/HPF) Ur Squamous Epith Cells (0-5/HPF) Amorphous Sediment Urine Bacteria (None) Ur Culture Indicated? Chlamy pneumoniae PCR Not detected (Not Detect) Adenovirus (PCR) Not detected (Not Detect) B. pertussis DNA (PCR) Not detected (Not Detecte) B.parapertussis DNA PCR Not detected (Not Detecte) Coronavirus OC43 (PCR) Not detected (Not Detect) Coronavirus HKU1 (PCR) Not detected (Not Detect) Coronavirus 229E (PCR) Not detected (Not Detect) SARS-CoV-2 (PCR) Negative Not detected (Negative) Coronavirus NL63 (PCR) Not detected (Not Detect) Human Metapneumovir PCR Not detected (Not Detect) Influenza Type A (PCR) Not detected (Not Detect) Influenza Type B (PCR) Not detected (Not Detect) M. pneumoniae (PCR) Not detected (Not Detect) Parainfluenza 1 (PCR) Not detected (Not Detect) Parainfluenza 2 (PCR) Not detected (Not Detect) Parainfluenza 3 (PCR) Not detected (Not Detect) Parainfluenza 4 (PCR) Not detected (Not Detect) RSV (PCR) Not detected (Not Detect) Entero/Rhino (PCR) Not detected (Not Detect) 04/18/22 04/18/22 Range/Units 23:55 23:55 WBC (4.5-11.0) X10^3/uL RBC (4.0-5.2) X10^6/uL Hgb (12.0-16.0) g/dL Hct (36-46) % MCV (80-100) fL MCH (26-34) PG MCHC (30-36) % RDW (11.6-14.8) % Plt Count (150-400) X10^3/uL Neut % (Auto) (50-75) % Lymph % (Auto) (25-40) % [place] % (Auto) (3-14) % Eos % (Auto) (2-4) % Baso % (Auto) (0-2) % Neut # (Auto) (0907-1130) /uL Lymph # (Auto) (3966-1886) /uL [place] # (Auto) (0-900) /uL Eos # (Auto) (0-450) /uL Baso # (Auto) (0-100) /uL D-Dimer 1039 H (<500) ng/ml Sodium 137 (137-145) mmol/L Potassium 4.5 (3.4-5.1) mmol/L Chloride 100 (98-107) mmol/L Carbon Dioxide 29 (22-32) mmol/L BUN 22 H (7-17) mg/dL Creatinine 0.90 (0.52-1.04) mg/dL Estimated GFR > 60 (>60) mL/min BUN/Creatinine Ratio 24.4 H (6-22) Glucose 98 (80-110) mg/dL Calcium 9.4 (8.4-10.2) mg/dL Total Bilirubin 0.9 (0.2-1.3) mg/dL AST 22 (14-36) IU/L ALT 21 (<35) IU/L Alkaline Phosphatase 108 (38-126) U/L Total Creatine Kinase 27 L (30-135) U/L CK-MB (CK-2) TNP CK-MB (CK-2) Rel Index TNP Troponin I < 0.012 (0.01-0.034) ng/mL Total Protein 7.7 (6.3-8.2) g/dL Albumin 3.9 (3.5-5.0) g/dL Globulin 3.8 (1.7-4.1) g/dL Albumin/Globulin Ratio 1.0 (1.0-2.8) Urine Color Urine Appearance Urine pH (4.5-8.0) Ur Specific [place] (1.000-1.035) Urine Protein (Negative) Urine Glucose (UA) (Negative) g/dL Urine Ketones (NEGATIVE) Urine Occult Blood (Negative) Urine Nitrate (Negative) Urine Bilirubin (NEGATIVE) Urine Urobilinogen (0.2) E.U./dL Ur Leukocyte Esterase (NEGATIVE) Urine RBC (0-5/HPF) Urine WBC (0-5/HPF) Ur Squamous Epith Cells (0-5/HPF) Amorphous Sediment Urine Bacteria (None) Ur Culture Indicated? Chlamy pneumoniae PCR (Not Detect) Adenovirus (PCR) (Not Detect) B. pertussis DNA (PCR) (Not Detecte) B.parapertussis DNA PCR (Not Detecte) Coronavirus OC43 (PCR) (Not Detect) Coronavirus HKU1 (PCR) (Not Detect) Coronavirus 229E (PCR) (Not Detect) SARS-CoV-2 (PCR) (Negative) Coronavirus NL63 (PCR) (Not Detect) Human Metapneumovir PCR (Not Detect) Influenza Type A (PCR) (Not Detect) Influenza Type B (PCR) (Not Detect) M. pneumoniae (PCR) (Not Detect) Parainfluenza 1 (PCR) (Not Detect) Parainfluenza 2 (PCR) (Not Detect) Parainfluenza 3 (PCR) (Not Detect) Parainfluenza 4 (PCR) (Not Detect) RSV (PCR) (Not Detect) Entero/Rhino (PCR) (Not Detect) Imaging Data Extremity x-ray #1: Radiologist's Impression: [address] [address] XRay Report Signed Patient: Bailey King MR#: [id number] : 1935 Acct:[id number] Age/Sex: 87 / F Date of Service: 04/18/22 Loc: ED Accession Number: [id number] ?? Procedure: XR hip w pel if done LT 2V Ordering Provider: Janey Love D.O. PROCEDURE:? XR HIP W PEL IF DONE LT 2V ? INDICATIONS:? fall ? TECHNIQUE:? AP pelvis with lateral view(s) of the left hip(s) and left femur.? ? COMPARISON:? [facility], CT, CT CHEST ABD PEL W CON, 10/05/2021, 15:49. ? FINDINGS:? ? Bones:? Left hip arthroplasty projects in the expected location.? Plate and screw fixation along the left femur.? Left knee arthroplasty.? Fracture of the distal left femur which appears chronic.? Pelvic ring appears intact.? No suspicious bony lesions.? Moderate right hip DJD.? ? Soft tissues:? The visualized bowel gas pattern is normal.? No suspicious soft tissue calcifications.? ? ? IMPRESSION:? No acute fracture is identified. Left hip arthroplasty.? Left femur ORIF.? Left knee arthroplasty. ? Chronic appearing fracture of the distal left femur. ? ? ? Dictated by: Francesco Lorenzana M.D. on 04/18/2022 at 8:42 ? ? Approved by: Francesco Lorenzana M.D. on 04/18/2022 at 8:46? Chest x-ray: Radiologist's Impression: Signed Patient: Bailey King MR#: [id number] : 1935 Acct:[id number] Age/Sex: 87 / F Date of Service: 04/18/22 Loc: ED Accession Number: [id number] ?? Procedure: XR chest 1V Ordering Provider: Janey Love D.O. PROCEDURE:? XR CHEST 1V ? INDICATIONS:? fall on the ? TECHNIQUE:? One view of the chest was acquired.? ? COMPARISON:? [facility], CT, CT CHEST ABD PEL W CON, 10/05/2021, 15:49. ? FINDINGS:? ? Surgical changes and devices:? Left shoulder arthroplasty. ? Lungs and pleura:? Lungs are clear.? No pleural effusions or pneumothorax.? ? Mediastinum:? Mediastinal contours appear normal.? Heart size is normal.? ? Bones and chest wall:? No suspicious bony lesions.? Right shoulder DJD.? Overlying soft tissues appear unremarkable.? ? IMPRESSION:? No acute cardiopulmonary abnormality. ? ? ? Dictated by: Francesco Lorenzana M.D. on 04/18/2022 at 8:40 ? ? Approved by: Francesco Lorenzana M.D. on 04/18/2022 at 8:42 ? CT Pelvis: Radiologist's Impression: CT Scan Report Signed Patient: Bailey King MR#: [id number] : 1935 Acct:[id number] Age/Sex: 87 / F Date of Service: 04/18/22 Loc: ED Accession Number: [id number] ?? Procedure: CT pelvis wo con Ordering Provider: Janey Love D.O. PROCEDURE:? CT PEL WO CON ? INDICATIONS:? left hip pain ? TECHNIQUE:? Noncontrast 3 mm axial sections acquired through the bony pelvis, with coronal and sagittal reformatting.? ? COMPARISON:? [facility], CR, XR HIP W PEL IF DONE LT 2V, 04/18/2022, 8:12. ? FINDINGS:? Image quality:? 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 ? Bones:? Allowing for the presence of extensive metallic artifact, there is no identifiable acute cortical disruption involving left hip and proximal shaft of the left femur.? There is no acute pelvic fracture or contralateral right hip fracture noted. ? Soft tissues:? No hematoma identified.? Sigmoid diverticulosis. ? ? IMPRESSION:? ? 1. There is extensive metal artifact from remote left hip ORIF and left femoral shaft ORIF. ? 2. No identifiable left hip fracture.? No pelvic fracture.? Dictated by: Jorge A Pitts M.D. on 04/18/2022 at 9:05 ? ? [facility] Narrative Medical decision making narrative: Patient presents as a ground level fall 2 days ago. She has significant pain whenever she tries to ambulate and bear weight with her left hip. No head injury she is no focal deficits not on antiplatelet or anticoagulation medication. Blood work is overall reassuring no sign of UTI. Imaging is also completely negative. Pelvis x-ray and hip x-ray were initially negative however still having pain CT was ordered and is negative. Patient tried ambulation with staff here in the ED on it was unsuccessful. Physical therapy came down to evaluate her and again unsuccessful despite morphine. She was then given [place] physical therapy evaluated for 2nd time. Patient states that is really quite painful and does not understand what is happening. She is seen reading on the bed and [email or web address]. Social work is aware of her. Patient is not able to go home but does not meet admission criteria. Full work on placement. Signed out to Dr. Jordan <Caleb Jordan, DO - Last Filed: 04/19/22 05:39> Lab Data Labs: Lab Results 04/18/22 04/18/22 04/18/22 Range/Units 07:51 08:05 13:25 WBC 9.6 (4.5-11.0) X10^3/uL RBC 4.14 (4.0-5.2) X10^6/uL Hgb 12.1 (12.0-16.0) g/dL Hct 36.7 (36-46) % MCV 88.6 (80-100) fL MCH 29.1 (26-34) PG MCHC 32.8 (30-36) % RDW 14.6 (11.6-14.8) % Plt Count 215 (150-400) X10^3/uL Neut % (Auto) 71.6 (50-75) % Lymph % (Auto) 16.1 L (25-40) % Victoria % (Auto) 9.6 (3-14) % Eos % (Auto) 1.8 L (2-4) % Baso % (Auto) 0.9 (0-2) % Neut # (Auto) 6900 (9717-7246) /uL Lymph # (Auto) 1500 (8892-1861) /uL Victoria # (Auto) 900 (0-900) /uL Eos # (Auto) 200 (0-450) /uL Baso # (Auto) 100 (0-100) /uL D-Dimer (<500) ng/ml Sodium 138 (137-145) mmol/L Potassium 4.2 (3.4-5.1) mmol/L Chloride 103 (98-107) mmol/L Carbon Dioxide 26 (22-32) mmol/L BUN 28 H (7-17) mg/dL Creatinine 0.83 (0.52-1.04) mg/dL Estimated GFR > 60 (>60) mL/min BUN/Creatinine Ratio 33.7 H (6-22) Glucose 93 (80-110) mg/dL Calcium 9.6 (8.4-10.2) mg/dL Total Bilirubin 0.6 (0.2-1.3) mg/dL AST 24 (14-36) IU/L ALT 21 (<35) IU/L Alkaline Phosphatase 118 (38-126) U/L Total Creatine Kinase (30-135) U/L CK-MB (CK-2) CK-MB (CK-2) Rel Index Troponin I (0.01-0.034) ng/mL Total Protein 8.0 (6.3-8.2) g/dL Albumin 4.0 (3.5-5.0) g/dL Globulin 4.0 (1.7-4.1) g/dL Albumin/Globulin Ratio 1.0 (1.0-2.8) Urine Color Yellow Urine Appearance Clear Urine pH 5.5 (4.5-8.0) Ur Specific [place] 1.015 (1.000-1.035) Urine Protein Negative (Negative) Urine Glucose (UA) Negative (Negative) g/dL Urine Ketones Negative (NEGATIVE) Urine Occult Blood Trace-intact (Negative) Urine Nitrate Negative (Negative) Urine Bilirubin Negative (NEGATIVE) Urine Urobilinogen 0.2 (0.2) E.U./dL Ur Leukocyte Esterase Negative (NEGATIVE) Urine RBC 1-5/hpf (0-5/HPF) Urine WBC 0-1/hpf (0-5/HPF) Ur Squamous Epith Cells 0-1 /hpf (0-5/HPF) Amorphous Sediment 1+ Urine Bacteria None seen (None) Ur Culture Indicated? Cult not indicated Chlamy pneumoniae PCR (Not Detect) Adenovirus (PCR) (Not Detect) B. pertussis DNA (PCR) (Not Detecte) B.parapertussis DNA PCR (Not Detecte) Coronavirus OC43 (PCR) (Not Detect) Coronavirus HKU1 (PCR) (Not Detect) Coronavirus 229E (PCR) (Not Detect) SARS-CoV-2 (PCR) (Negative) Coronavirus NL63 (PCR) (Not Detect) Human Metapneumovir PCR (Not Detect) Influenza Type A (PCR) (Not Detect) Influenza Type B (PCR) (Not Detect) M. pneumoniae (PCR) (Not Detect) Parainfluenza 1 (PCR) (Not Detect) Parainfluenza 2 (PCR) (Not Detect) Parainfluenza 3 (PCR) (Not Detect) Parainfluenza 4 (PCR) (Not Detect) RSV (PCR) (Not Detect) Entero/Rhino (PCR) (Not Detect) 04/18/22 04/18/22 04/18/22 Range/Units 13:46 21:25 23:55 WBC 10.5 (4.5-11.0) X10^3/uL RBC 4.15 (4.0-5.2) X10^6/uL Hgb 12.1 (12.0-16.0) g/dL Hct 36.5 (36-46) % MCV 87.8 (80-100) fL MCH 29.1 (26-34) PG MCHC 33.1 (30-36) % RDW 14.8 (11.6-14.8) % Plt Count 204 (150-400) X10^3/uL Neut % (Auto) 78.0 H (50-75) % Lymph % (Auto) 10.9 L (25-40) % Victoria % (Auto) 8.7 (3-14) % Eos % (Auto) 1.7 L (2-4) % Baso % (Auto) 0.7 (0-2) % Neut # (Auto) 8200 H (0447-1833) /uL Lymph # (Auto) 1200 (0125-9174) /uL Victoria # (Auto) 900 (0-900) /uL Eos # (Auto) 200 (0-450) /uL Baso # (Auto) 100 (0-100) /uL D-Dimer (<500) ng/ml Sodium (137-145) mmol/L Potassium (3.4-5.1) mmol/L Chloride (98-107) mmol/L Carbon Dioxide (22-32) mmol/L BUN (7-17) mg/dL Creatinine (0.52-1.04) mg/dL Estimated GFR (>60) mL/min BUN/Creatinine Ratio (6-22) Glucose (80-110) mg/dL Calcium (8.4-10.2) mg/dL Total Bilirubin (0.2-1.3) mg/dL AST (14-36) IU/L ALT (<35) IU/L Alkaline Phosphatase (38-126) U/L Total Creatine Kinase (30-135) U/L CK-MB (CK-2) CK-MB (CK-2) Rel Index Troponin I (0.01-0.034) ng/mL Total Protein (6.3-8.2) g/dL Albumin (3.5-5.0) g/dL Globulin (1.7-4.1) g/dL Albumin/Globulin Ratio (1.0-2.8) Urine Color Urine Appearance Urine pH (4.5-8.0) Ur Specific [place] (1.000-1.035) Urine Protein (Negative) Urine Glucose (UA) (Negative) g/dL Urine Ketones (NEGATIVE) Urine Occult Blood (Negative) Urine Nitrate (Negative) Urine Bilirubin (NEGATIVE) Urine Urobilinogen (0.2) E.U./dL Ur Leukocyte Esterase (NEGATIVE) Urine RBC (0-5/HPF) Urine WBC (0-5/HPF) Ur Squamous Epith Cells (0-5/HPF) Amorphous Sediment Urine Bacteria (None) Ur Culture Indicated? Chlamy pneumoniae PCR Not detected (Not Detect) Adenovirus (PCR) Not detected (Not Detect) B. pertussis DNA (PCR) Not detected (Not Detecte) B.parapertussis DNA PCR Not detected (Not Detecte) Coronavirus OC43 (PCR) Not detected (Not Detect) Coronavirus HKU1 (PCR) Not detected (Not Detect) Coronavirus 229E (PCR) Not detected (Not Detect) SARS-CoV-2 (PCR) Negative Not detected (Negative) Coronavirus NL63 (PCR) Not detected (Not Detect) Human Metapneumovir PCR Not detected (Not Detect) Influenza Type A (PCR) Not detected (Not Detect) Influenza Type B (PCR) Not detected (Not Detect) M. pneumoniae (PCR) Not detected (Not Detect) Parainfluenza 1 (PCR) Not detected (Not Detect) Parainfluenza 2 (PCR) Not detected (Not Detect) Parainfluenza 3 (PCR) Not detected (Not Detect) Parainfluenza 4 (PCR) Not detected (Not Detect) RSV (PCR) Not detected (Not Detect) Entero/Rhino (PCR) Not detected (Not Detect) 04/18/22 04/18/22 Range/Units 23:55 23:55 WBC (4.5-11.0) X10^3/uL RBC (4.0-5.2) X10^6/uL Hgb (12.0-16.0) g/dL Hct (36-46) % MCV (80-100) fL MCH (26-34) PG MCHC (30-36) % RDW (11.6-14.8) % Plt Count (150-400) X10^3/uL Neut % (Auto) (50-75) % Lymph % (Auto) (25-40) % Victoria % (Auto) (3-14) % Eos % (Auto) (2-4) % Baso % (Auto) (0-2) % Neut # (Auto) (0549-4948) /uL Lymph # (Auto) (7200-7453) /uL Victoria # (Auto) (0-900) /uL Eos # (Auto) (0-450) /uL Baso # (Auto) (0-100) /uL D-Dimer 1039 H (<500) ng/ml Sodium 137 (137-145) mmol/L Potassium 4.5 (3.4-5.1) mmol/L Chloride 100 (98-107) mmol/L Carbon Dioxide 29 (22-32) mmol/L BUN 22 H (7-17) mg/dL Creatinine 0.90 (0.52-1.04) mg/dL Estimated GFR > 60 (>60) mL/min BUN/Creatinine Ratio 24.4 H (6-22) Glucose 98 (80-110) mg/dL Calcium 9.4 (8.4-10.2) mg/dL Total Bilirubin 0.9 (0.2-1.3) mg/dL AST 22 (14-36) IU/L ALT 21 (<35) IU/L Alkaline Phosphatase 108 (38-126) U/L Total Creatine Kinase 27 L (30-135) U/L CK-MB (CK-2) TNP CK-MB (CK-2) Rel Index TNP Troponin I < 0.012 (0.01-0.034) ng/mL Total Protein 7.7 (6.3-8.2) g/dL Albumin 3.9 (3.5-5.0) g/dL Globulin 3.8 (1.7-4.1) g/dL Albumin/Globulin Ratio 1.0 (1.0-2.8) Urine Color Urine Appearance Urine pH (4.5-8.0) Ur Specific [place] (1.000-1.035) Urine Protein (Negative) Urine Glucose (UA) (Negative) g/dL Urine Ketones (NEGATIVE) Urine Occult Blood (Negative) Urine Nitrate (Negative) Urine Bilirubin (NEGATIVE) Urine Urobilinogen (0.2) E.U./dL Ur Leukocyte Esterase (NEGATIVE) Urine RBC (0-5/HPF) Urine WBC (0-5/HPF) Ur Squamous Epith Cells (0-5/HPF) Amorphous Sediment Urine Bacteria (None) Ur Culture Indicated? Chlamy pneumoniae PCR (Not Detect) Adenovirus (PCR) (Not Detect) B. pertussis DNA (PCR) (Not Detecte) B.parapertussis DNA PCR (Not Detecte) Coronavirus OC43 (PCR) (Not Detect) Coronavirus HKU1 (PCR) (Not Detect) Coronavirus 229E (PCR) (Not Detect) SARS-CoV-2 (PCR) (Negative) Coronavirus NL63 (PCR) (Not Detect) Human Metapneumovir PCR (Not Detect) Influenza Type A (PCR) (Not Detect) Influenza Type B (PCR) (Not Detect) M. pneumoniae (PCR) (Not Detect) Parainfluenza 1 (PCR) (Not Detect) Parainfluenza 2 (PCR) (Not Detect) Parainfluenza 3 (PCR) (Not Detect) Parainfluenza 4 (PCR) (Not Detect) RSV (PCR) (Not Detect) Entero/Rhino (PCR) (Not Detect) MDM Narrative Medical decision making narrative: Patient presents as a ground level fall 2 days ago. She has significant pain whenever she tries to ambulate and bear weight with her left hip. No head injury she is no focal deficits not on antiplatelet or anticoagulation medication. Blood work is overall reassuring no sign of UTI. Imaging is also completely negative. Pelvis x-ray and hip x-ray were initially negative however still having pain CT was ordered and is negative. Patient tried ambulation with staff here in the ED on it was unsuccessful. Physical therapy came down to evaluate her and again unsuccessful despite morphine. She was then given [place] physical therapy evaluated for 2nd time. Patient states that is really quite painful and does not understand what is happening. She is seen reading on the bed and gurney. Social work is aware of her. Patient is not able to go home but does not meet admission criteria. Full work on placement. Signed out to Dr. Jordan [[id number]] (Julian) Patient received in sign out from [Kate]. I have reviewed the clinical course and performed an independent history and physical exam. Patient will remain in the emergency department likely overnight to visit with [facility] [employer] [facility] to work on placement to assisted facility 2014 -patient becoming slowly but increasingly hypoxemic with a gradual decline in pulse ox to the upper 80s. She denies any significant shortness of breath and has no chest pain, patient placed on 2 L by nasal cannula with rapid improvement to the mid 90s. Given her sedentary lifestyle, tendency to fall and history of cancer D-dimer added which is noted to be elevated above the threshold, CT angiogram performed 526 -CT angiogram demonstrates bilateral pulmonary emboli, patient given Lovenox 1 milligram/kilogram subQ and admitted to the hospital Discharge Plan Departure Patient Disposition: Admitted As Inpatient Clinical Impression: Bilateral pulmonary embolism, Contusion of hip, left Admit Date/Time: 04/19/22 05:35 Admit Provider: Dipika Sanchez
[2022-04-18 08:14] LABS: Add Manual Diff / Slide Review NO; Basophils Absolute Auto 100 /uL (0-100); Basophils Percent Auto 0.9 % (0-2); Eosinophils Absolute Auto 200 /uL (0-450); Eosinophils Percent Auto 1.8 % (2-4); Hematocrit 36.7 % (36-46); Hemoglobin 12.1 g/dL (12.0-16.0); Lymphocytes Absolute Auto 1500 /uL (1100-4500); Lymphocytes Percent Auto 16.1 % (25-40); Mean Corpuscular HGB Conc 32.8 % (30-36); Mean Corpuscular Hemoglobin 29.1 PG (26-34); Mean Corpuscular Volume 88.6 fL (80-100); Monocytes Absolute Auto 900 /uL (0-900); Monocytes Percent Auto 9.6 % (3-14); Neutrophils Absolute Auto 6900 /uL (1500-7000); Neutrophils Percent Auto 71.6 % (50-75); Platelet Count 215 X10^3/uL (150-400); Red Blood Cell Count 4.14 X10^6/uL (4.0-5.2); Red Cell Distribution Width 14.6 % (11.6-14.8); White Blood Cell Count 9.6 X10^3/uL (4.5-11.0)
[2022-04-18 08:23] LABS: Alanine Aminotransferase 21 IU/L (<35); Alkaline Phosphatase 118 U/L (38-126); Aspartate Aminotransferase 24 IU/L (14-36); BUN Creatinine Ratio 33.7 (6-22); Bilirubin Total 0.6 mg/dL (0.2-1.3); Blood Urea Nitrogen 28 mg/dL (7-17); Calcium 9.6 mg/dL (8.4-10.2); Carbon Dioxide 26 mmol/L (22-32); Chloride 103 mmol/L (98-107); Estimated Glomerular Filt Rate > 60 mL/min (>60); Glucose 93 mg/dL (80-110); HEMOLYSIS 17 (0-50); Potassium 4.2 mmol/L (3.4-5.1); Sodium 138 mmol/L (137-145)
--- NOTE | 2022-04-18 08:32 | DI.CT.S_ITS ---
PROCEDURE: CT PEL WO CON INDICATIONS: left hip pain TECHNIQUE: Noncontrast 3 mm axial sections acquired through the bony pelvis, with coronal and sagittal reformatting. COMPARISON: [facility], CR, XR HIP W PEL IF DONE LT 2V, 04/18/2022, 8:12. 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 Bones: Allowing for the presence of extensive metallic artifact, there is no identifiable acute cortical disruption involving left hip and proximal shaft of the left femur. There is no acute pelvic fracture or contralateral right hip fracture noted. Soft tissues: No hematoma identified. Sigmoid diverticulosis. IMPRESSION: 1. There is extensive metal artifact from remote left hip ORIF and left femoral shaft ORIF. 2. No identifiable left hip fracture. No pelvic fracture. Dictated by: Jorge A Pitts M.D. on 04/18/2022 at 9:05 Approved by: Jorge A Pitts M.D. on 04/18/2022 at 9:11
[2022-04-18] MEDS: ONDANSETRON 4 MG/2 ML INJ IV (08:40)
[2022-04-18] MEDS: MORPHINE 2 MG/ML INJ IV (08:40)
--- NOTE | 2022-04-18 10:10 | PC.NURSE ---
Addendum entered by Tianna Simeon R.N. 04/18/22 10:13: pt did get to edge of bed but reports unable to stand and ambulate. pt consult placed by Original Note: pt has walker at home pt reports too painful to ambulate and bear weight. pt has been ambulating however at home with this pain. pt given pain medication in er.
--- NOTE | 2022-04-18 10:41 | PC.NURSE ---
tried to assist with ambulation, pt. was able to sit at edge of bed with assistance, but could move no further. was not able to stand. ambulation trial failed.
[2022-04-18] MEDS: HYDROCODONE/ACET 5/325 TABLET 1 TAB PO ×2 (13:05→22:13)
--- NOTE | 2022-04-18 13:52 | PC.NURSE ---
caddy attempted to ambulate pt cannot states no oh god it hurts too much, PT here to attempt pt eval and pt medicated with norco for pain but states no i cant it just hurts too bad it cronin pt tearful, pt moves leg bag when moved by pt only 1 inch. pt reports needing to urinate but will not allow moving or turning to get onto bedpan. explained we need pt eval to assess rehab potential as she requested and that she has to urinate in some way either catheter, bedpan, or bedside commode. pt reports pain too severe to moved. pt pulled up in bed by 2 staff members and pant/underwear removed. rn assisted pt to bend right knee and spread legs by moving right knee/leg away from left, in and out cath completed and obtained 900 cc foul yellow urine. pt reports still feeling urge to urinate after cath completed. pt reports my neck is stiff and hurts pt points to left hip/buttock/pelvis/lower back as painful rates pain as 10/10 and unbearable. UA sent to lab and covid swab collected pending further eval by md and possibly pt.
[2022-04-18 14:08] LABS: Appearance Urine UA CLEAR; Bilirubin Urine UA NEGATIVE (NEGATIVE); Color Urine UA YELLOW; Glucose Urine UA NEGATIVE (Negative); Ketones Urine UA NEGATIVE (NEGATIVE); Leukocyte Esterase Urine UA NEGATIVE (NEGATIVE); Nitrite Urine UA NEGATIVE (Negative); Occult Blood Urine UA TRACE-INTACT (Negative); Protein Urine UA NEGATIVE (Negative); Specific Gravity Urine UA 1.015 (1.000-1.035); Urobilinogen Urine UA 0.2 E.U./dL (0.2)
[2022-04-18 14:14] LABS: pH Urine UA 5.5 (4.5-8.0)
[2022-04-18 14:15] LABS: Amorphous Sediment Urine 1+; Bacteria Urine None Seen; Culture Indicated Urine Cult Not Indicated; RBC Urine 1-5/HPF (0-5/HPF); Squamous Epithelial Cell Urine 0-1 /HPF (0-5/HPF); WBC Urine 0-1/HPF (0-5/HPF)
[2022-04-18 14:19] LABS: COVID19 -Nasal RAPID Negative (Negative)
--- NOTE | 2022-04-18 16:01 | PT.IIE ---
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 Medical History (Last Reviewed 04/18/22 @ 07:57 by Janey Love DO) Anemia (~2020) Ankle pain (~2019) Anxiety (~2018) Cataracts, bilateral Chicken pox Fall at home Foot pain Fractures Gait instability Hearing loss (~2012) Measles Mumps Osteoarthritis Osteopenia Restless leg syndrome (~2020) Retinal detachment (~2004) Rheumatoid arthritis Shoulder pain Uses walker Vertigo Weakness Physical Therapy Inpatient Evaluation/Re-Eval M1 PT/OT-IP Prior Functional Status Start: 04/18/22 15:22 Freq: Status: Active Protocol: Document 04/18/22 15:50 [facility] (Rec: 04/18/22 16:01 [facility] [id number]) Medical Review Prior Functional Status Medical History Reviewed Yes Diet/Fluid Consistency Regular Communication WNL Mobility and Gait pt has 1PA at [facility] for all mobility w/FWW & Bed mobility Activities of Daily Living and IADL's Pt requires assist for dressing and bathing and all ADLS and IADLs Social History Household Members none Living Arrangements Assisted Living Number of Floors (Floors) One Floor Home Environment High Toilet,Walk in Shower Home Equipment Grab Bars Near Toilet,Grab Bars In Shower M2 PT-IP Current Condition Start: 04/18/22 15:22 Freq: Status: Active Protocol: Document 04/18/22 15:50 [facility] (Rec: 04/18/22 16:01 [facility] [id number]) Physical Therapy Current Condition Current Condition Evaluation Date 04/18/22 Treatment Diagnosis difficulty in walking M3 PT-IP Subjective Start: 04/18/22 15:22 Freq: Status: Active Protocol: Document 04/18/22 15:50 [facility] (Rec: 04/18/22 16:01 [facility] [id number]) Subjective Physical Therapy Visit Type Type Initial Evaluation Visit Start Time 12:45 Visit Stop Time 13:20 Total Visit Minutes 54 Notes pt seen initially at [id number] then again at [id number] totally 54 min Therapy Pain Assessment Pain When Pain Assessed During Mobility Pain Present Pain Present Pain Reported Location Left Hip Pain Management Techniques Apply Cold M4 PT-IP Mobility and Gait Start: 04/18/22 15:22 Freq: Status: Active Protocol: Document 04/18/22 15:50 [facility] (Rec: 04/18/22 16:01 [facility] [id number]) PT-Bed Mobility Assessment Supine to Sit Supine to Sit Maximum Assistance,2 Person Assistance Sit to Supine Sit to Supine Maximum Assistance,2 Person Assistance Scooting Scooting to Edge of Bed Maximum Assistance PT-Transfer Assessment Sit to and From Stand Sit to and from Stand Maximum Assistance,2 Person Assistance,Use of Upper Extremities Equipment Transfer Assistive Device Gait Belt,Front Wheeled Walker Orthotic/Prosthetic Devices or Brace: No Comments Mobility Comments When initially tried evaluation, pt relucatnt to move and PT tried mult times to help pt sequence LE over small bits at a time but would move LEs back to where they were saying it was too painful and refused mobility. Significant time spent w/pt educating on importance of mobility. Pt tried again later and pt required max Ax2 w/RN for supine to sit and pt sat EOB SBA and required max A for scoot to EOB and Max Ax2 to stand to FWW and stood for 30 sec before reprting needing to sit to down. She srequired max A x2 for sit to supine. Left w/call light in reach. Gait Assessment Comments Gait Comments unable PT-Balance Assessment Sitting Balance and Reactions Static Sitting Balance Ability Fair Dynamic Sitting Balance Ability Poor Standing Balance and Reactions Static Standing Balance Ability Poor Dynamic Standing Balance Ability Poor Device Used FWW M5 PT-IP Objective Assessments Start: 04/18/22 15:22 Freq: Status: Active Protocol: Document 04/18/22 15:50 [facility] (Rec: 04/18/22 16:01 [facility] [id number]) Orientation Orientation/Cognition Level of Alertness Alert Language Function Ability No Deficits Noted Safety Awareness Understands Safety Issues Memory Description No Deficits Noted Gross Range of Motion Lower Extremity ROM Assessment Left Impaired Impairments will not actively move LLE nad reluctant to let PT do any L hip PROM Strength Lower Extremity Strength Assessment Bilaterally Impaired Hip L grossly 2-/5 d/t pain and R grossly 3+/5 Knee L grossly 2-/5 d/t pain and R grossly 3+/5 Ankle WFL M6 PT-IP Treatment Start: 04/18/22 15:22 Freq: Status: Active Protocol: Document 04/18/22 15:50 [facility] (Rec: 04/18/22 16:01 [facility] [id number]) Physical Therapy Treatment Education Education Provided Weight Bearing Status,Safety Other Treatments Other Treatment Performed significant time spent w/pt discussing DC plan and options . Finally decided w/pt SNF best and pt agreeable. Significant time spent educating pt re: importance of mobility and why she needs to mobilize to help w/pain and recovery process. M7 PT-IP Assessment and Plan Start: 04/18/22 15:22 Freq: Status: Active Protocol: Document 04/18/22 15:50 [facility] (Rec: 04/18/22 16:01 [facility] [id number]) PT Summary Assessment and Plan Potential Rehabilitation Potential Good Status of Condition at Evaluation Evolving Summary Impairments Pain,ROM,Strength,Balance,Bed Mobility,Transfers,Gait, Activity Tolerance Assessment Summary Pt presnts after a fall on L hip w/o any CT or Xray evidence of what is causing L hip pain. pt was initially refusing mobiity w/PT then did attempt mboility w/PT and RN but required max A x2 for all mobility and required max A x2 to just stand at walker for nomore than 30 dec and pt unable to take steps. At this time, she will require 2 PA and requires rehab before return to [facility] to get back to 1 PA. Goals Bed Mobility Goal Moderate Assistance Transfer Goal Moderate Assistance Gait Goal Minimal Assistance,Front Wheel Walker Gait Distance 40ft Days to Meet Goals 8 Frequency of Treatment Frequency Of Treatment Once a Day Treatment Plan Physical Therapy Treatment Plan Bed Mobility Training,Transfer Training,Gait Training, Therapeutic Exercise,Balance Retraining,Hot or Cold Pack, Neuromuscular Re-ed,Manual Therapy Other Recommendations and Next Treatment work on bed mobility and gait Focus Weight Bearing Status Weight Bearing Status Weight Bear as Tolerated Recommendations To Nursing Amount of Assist Needed 2 Person Assist Discharge Recommendations PT Discharge Recommendations SNF Rehab Transportation Needs at Discharge Wheelchair/Cabulance
--- NOTE | 2022-04-18 20:48 | PC.NURSE ---
Addendum entered by Yash Bolden R.N. 04/18/22 20:49: Asked if patient on oxygen at home she states, no. Provider aware. Original Note: Pt moved to Rm 12. This RN notified by [employer] that pt saturation was at 88%. This RN placed pt on 2L via NC, now at 99% on 2L.
--- NOTE | 2022-04-18 21:01 | DI.RAD.S_ITS ---
PROCEDURE: XR CHEST 1V INDICATIONS: hypoxemia TECHNIQUE: One view of the chest was acquired. COMPARISON: [facility], CR, XR CHEST 1V, 04/18/2022, 8:12. FINDINGS: Surgical changes and devices: Left shoulder arthroplasty. Lungs and pleura: Lungs are clear. No pleural effusions or pneumothorax. Mediastinum: Mediastinal contours appear normal. Heart size is mildly enlarged. Bones and chest wall: No suspicious bony lesions. Overlying soft tissues appear unremarkable. IMPRESSION: No acute pulmonary process. Dictated by: Tania Dockery M.D. on 04/18/2022 at 21:21 Approved by: Tania Dockery M.D. on 04/18/2022 at 21:21
[2022-04-18] MEDS: SERTRALINE 50 MG TABLET 100 MG PO (22:11)
[2022-04-18] MEDS: ONDANSETRON 4 MG ODT PO (22:11)
[2022-04-18 22:19] LABS: Adenovirus Not Detected (Not Detect); B. parapertussis Not Detected (Not Detecte); Bordetella pertussis Not Detected (Not Detecte); Chlamydophila pneumoniae Not Detected (Not Detect); Coronavirus 229E Not Detected (Not Detect); Coronavirus HKU1 Not Detected (Not Detect); Coronavirus NL 63 Not Detected (Not Detect); Coronavirus OC43 Not Detected (Not Detect); Human Metapneumovirus Not Detected (Not Detect); Human Rhinovirus/Enterovirus Not Detected (Not Detect); Influenza A Not Detected (Not Detect); Influenza B Not Detected (Not Detect); Mycoplasma pneumoniae Not Detected (Not Detect); Parainfluenza Virus 1 Not Detected (Not Detect); Parainfluenza Virus 2 Not Detected (Not Detect); Parainfluenza Virus 3 Not Detected (Not Detect); Parainfluenza Virus 4 Not Detected (Not Detect); Respiratory Syncytial Virus Not Detected (Not Detect); SARS- CoV-2 Not Detected (Not Detecte)
[2022-04-19] VITALS (23 sets, daily range): BP systolic 98–147; BP diastolic 45–67; PULSE 69–92; RESP 16–20; TEMP 36.1–37.2; O2SAT 94–99; BMI 27.9
[2022-04-19 00:06] LABS: Add Manual Diff / Slide Review NO; Basophils Absolute Auto 100 /uL (0-100); Basophils Percent Auto 0.7 % (0-2); Eosinophils Absolute Auto 200 /uL (0-450); Eosinophils Percent Auto 1.7 % (2-4); Hematocrit 36.5 % (36-46); Hemoglobin 12.1 g/dL (12.0-16.0); Lymphocytes Absolute Auto 1200 /uL (1100-4500); Lymphocytes Percent Auto 10.9 % (25-40); Mean Corpuscular HGB Conc 33.1 % (30-36); Mean Corpuscular Hemoglobin 29.1 PG (26-34); Mean Corpuscular Volume 87.8 fL (80-100); Monocytes Absolute Auto 900 /uL (0-900); Monocytes Percent Auto 8.7 % (3-14); Neutrophils Absolute Auto 8200 /uL (1500-7000); Platelet Count 204 X10^3/uL (150-400); Red Blood Cell Count 4.15 X10^6/uL (4.0-5.2); Red Cell Distribution Width 14.8 % (11.6-14.8); White Blood Cell Count 10.5 X10^3/uL (4.5-11.0)
[2022-04-19 00:17] LABS: D Dimer 1039 ng/ml (<500)
[2022-04-19 00:20] LABS: Alanine Aminotransferase 21 IU/L (<35); Albumin 3.9 g/dL (3.5-5.0); Alkaline Phosphatase 108 U/L (38-126); Aspartate Aminotransferase 22 IU/L (14-36); BUN Creatinine Ratio 24.4 (6-22); Bilirubin Total 0.9 mg/dL (0.2-1.3); Blood Urea Nitrogen 22 mg/dL (7-17); Calcium 9.4 mg/dL (8.4-10.2); Carbon Dioxide 29 mmol/L (22-32); Chloride 100 mmol/L (98-107); Creatine Kinase 27 U/L (30-135); Estimated Glomerular Filt Rate > 60 mL/min (>60); Globulin 3.8 g/dL (1.7-4.1); Glucose 98 mg/dL (80-110); HEMOLYSIS < 15 (0-50); Potassium 4.5 mmol/L (3.4-5.1); Sodium 137 mmol/L (137-145); Total Protein 7.7 g/dL (6.3-8.2)
[2022-04-19 00:32] LABS: Troponin I < 0.012 ng/mL (0.01-0.034)
--- NOTE | 2022-04-19 02:18 | DI.CT.S_ITS ---
PROCEDURE: CT ANGIO CHEST PE PROTOCOL INDICATIONS: increasingly SOB, tachycardic, critical Dimer TECHNIQUE: After the administration of intravenous contrast, 2 mm thick sections acquired from the pulmonary apices to the posterior costophrenic angles. 3-dimensional maximum intensity projection (MIP) coronal and sagittal reformats were then acquired through the thorax. For radiation dose reduction, the following was used: automated exposure control, adjustment of mA and/or kV according to patient size. COMPARISON: [facility], CT, CT CHEST ABD PEL W CON, 10/05/2021, 15:49. FINDINGS: Image quality: Excellent. Pulmonary arteries: Pulmonary arteries are normal in size, and demonstrate no intraluminal filling defects to suggest central pulmonary embolism. Lungs and pleura: Mild atelectasis is present at the dependent lung bases bilaterally. The lungs are otherwise clear. No pleural effusions or pneumothorax. Central and peripheral airways are patent. Mediastinum: Heart size is normal, without pericardial effusion. No mediastinal or hilar adenopathy. Thoracic aorta is normal in caliber and enhancement. Esophagus is normal in caliber, without hiatal hernia. Bones and chest wall: No suspicious bony lesions. Ribs and thoracic spine appear intact throughout. Thyroid gland is unremarkable. No axillary or supraclavicular adenopathy. Abdomen: There is marked ectasia of the common bile duct, unchanged from the study dated October 05, 2021. A simple hepatic cyst is redemonstrated. Left adrenal adenoma is redemonstrated. Visualized upper abdominal solid organs appear otherwise normal in the early arterial phase of enhancement. IMPRESSION: 1. No acute pulmonary embolus. Of note, a questionable filling defect is described on the overnight interpretation in a subsegmental branch of the right lower lobe. However, this finding most likely represents the inferior margin of a branching pulmonary artery. No definite acute pulmonary embolus. 2. Marked dilatation of the common bile duct unchanged from the prior study. Dictated by: Francine Washington M.D. on 04/19/2022 at 8:00 Approved by: Francine Washington M.D. on 04/19/2022 at 8:08
--- NOTE | 2022-04-19 02:56 | PC.NURSE ---
0100: Called coordinator to ask for SCDs. Coordinator will send down when available.
[2022-04-19] MEDS: ENOXAPARIN 40 MG/0.4 ML SYRINGE 75 MG SUBCUT (05:53)
--- NOTE | 2022-04-19 06:03 | P.HP_ITS ---
History of Present Illness History of Present Illness Date Patient Seen: 04/19/22 Time Patient Seen: 06:03 Chief complaint: Fall Narrative: Bailey King is an 87-year-old female who resides at [facility] has history of rheumatoid arthritis,osteoarthritis, osteopenia, global weakness, unstable gait uses a walker, and has frequent falls. Patient initially presented to the ED on 04/18 at 7:51 a.m.after a ground level fall 2 nights ago.? She says she was using her walker in the shower she had assistance she went to kick a trash can when she landed on her left hip.? She has been ambulatory but it is quite painful for her.? She denies hitting her head no loss of consciousness.? She is not on any antiplatelet or anticoagulation medication.? She has minimal neck pain.? No shortness of breath dizziness lightheadedness chest pain or palpitations.? She says every time she tries to walk now it is excruciating and she is unable to bear weight.? She previously had hip replacement. The plan had been to keep the patient in the ED department for PT OT evaluation and transfer to SNF. At approximately 11:55 p.m. on 04/18 the patient began to have increasing shortness of breath desaturating to 88% on room air, which time the ED department applied oxygen, labs were unremarkable with the exception of a D- dimer 1039-patient was sent for a CTA which demonstrated bilateral pulmonary embolus. On admit patient denies chest pain, shortness breath, cough, fever, body aches, chills, abdominal pain, nausea, vomiting, diarrhea, constipation, hematuria hematemesis, melena, and is eating in no distress this time. Patient does note that she did have a blood clot in her legs following venous surgery approximately 20 years ago, has had no further issues and has not been on any medication and has no cardiac history. Patient is currently stable afebrile temp 98.2?, 115/54, HR 83, R 18, saturating 98% on 2 L nasal cannula in the ED. ED initiated Lovenox 1 milligram/kilogram 75 mg b.i.d. CBC CMP and liver panel predominantly unremarkable urinalysis, respiratory panel, troponin all WNL chest x-ray demonstrated no acute cardiopulmonary process, pelvic CT negative for acute process or fracture, left hip x-ray demonstrated arthroplasty, left femur ORIF, knee arthroplasty, chronic appreciated fracture distal left femur. Due to patient's chronic unstable gait frequent falls she is significantly sedentary. Patient admitted for bilateral pulmonary embolus with shortness of breath secondary to ground level fall left hip injury due to unstable gait global weak ness and frequent falls. Patient History Medical History Anemia (~2020) Ankle pain (~2019) Anxiety (~2018) Cataracts, bilateral Chicken pox Fall at home Foot pain Fractures Gait instability Hearing loss (~2012) Measles Mumps Osteoarthritis Osteopenia Restless leg syndrome (~2020) Retinal detachment (~2004) Rheumatoid arthritis Shoulder pain Uses walker Vertigo Weakness Surgical History Anesthesia Fracture of upper leg History of ankle surgery History of bilateral knee replacement History of left hip replacement History of left shoulder replacement Family & Social History Family History Granddaughter COVID-19 Mother Alcoholism Social History: household members none Prior Living Arrangements Assisted Living -[facility] Safety & Behavioral: Feels Safe in Current Yes Environment Tobacco & Substance use: Smoking Status Never smoker Substance Use Type does not use Meds Home Medications and Allergies Home Medications Medication Instructions Recorded Confirmed Type ascorbic acid (vitamin C) 250 mg 250 mg PO QAM 11/24/21 04/18/22 History tablet cholecalciferol (vitamin D3) 50 50 mcg PO DAILY 11/24/21 04/18/22 History mcg (2,000 unit) capsule famotidine 20 mg tablet 20 mg PO QAM 11/24/21 04/18/22 History folic acid 1 mg tablet 1 mg PO QAM 11/24/21 04/18/22 History polyethylene glycol 3350 17 17 g PO DAILY PRN Constipation 11/24/21 04/18/22 History gram/dose oral powder sertraline 100 mg tablet 100 mg PO BEDTIME 11/24/21 04/18/22 History acetaminophen 325 mg capsule 650 mg PO Q4H PRN Pain (Scale 02/14/22 04/18/22 History Score 4-6) Allergies Allergy/AdvReac Type Severity Reaction Status Date / Time No Known Drug Allergies Allergy Verified 04/18/22 07:52 Review of Systems Review of Systems Narrative: All 12 point systems reviewed with the patient and are negative except otherwise documented. Exam Vital Signs (past 8 hours): - 04/18/22 22:30 04/18/22 22:30 04/18/22 23:00 Pulse Rate 79 Respiratory Rate Blood Pressure 128/58 L 114/58 L Pulse Oximetry 97 Oxygen Delivery Method Oxygen Flow Rate 04/18/22 23:00 04/18/22 23:30 04/18/22 23:30 Pulse Rate 77 80 Respiratory Rate Blood Pressure 111/56 L Pulse Oximetry 97 96 Oxygen Delivery Method Oxygen Flow Rate 04/19/22 00:00 04/19/22 00:01 04/19/22 00:01 Pulse Rate 81 77 Respiratory Rate Blood Pressure 116/56 L Pulse Oximetry 95 96 Oxygen Delivery Method Oxygen Flow Rate 04/19/22 00:30 04/19/22 00:30 04/19/22 01:00 Pulse Rate 72 76 Respiratory Rate Blood Pressure 103/53 L Pulse Oximetry 95 96 Oxygen Delivery Method Oxygen Flow Rate 04/19/22 01:01 04/19/22 01:01 04/19/22 01:30 Pulse Rate 92 H Respiratory Rate Blood Pressure 116/58 L 108/53 L Pulse Oximetry 97 Oxygen Delivery Method Nasal Cannula Oxygen Flow Rate 2 04/19/22 01:30 04/19/22 02:00 04/19/22 02:01 Pulse Rate 75 69 Respiratory Rate Blood Pressure 103/54 L Pulse Oximetry 95 96 Oxygen Delivery Method Oxygen Flow Rate 04/19/22 02:01 04/19/22 02:30 04/19/22 02:30 Pulse Rate 75 70 Respiratory Rate Blood Pressure 105/53 L Pulse Oximetry 97 96 Oxygen Delivery Method Oxygen Flow Rate 04/19/22 03:10 04/19/22 03:12 04/19/22 03:12 Pulse Rate 86 83 Respiratory Rate Blood Pressure 147/63 H Pulse Oximetry 98 98 Oxygen Delivery Method Oxygen Flow Rate 04/19/22 03:30 04/19/22 03:30 04/19/22 04:00 Pulse Rate 71 Respiratory Rate Blood Pressure 107/53 L 115/54 L Pulse Oximetry 96 Oxygen Delivery Method Oxygen Flow Rate 04/19/22 04:00 04/19/22 04:30 04/19/22 04:30 Pulse Rate 83 70 Respiratory Rate Blood Pressure 107/53 L Pulse Oximetry 98 99 Oxygen Delivery Method Oxygen Flow Rate 04/19/22 05:00 04/19/22 05:00 04/19/22 05:30 Pulse Rate 73 Respiratory Rate 20 Blood Pressure 113/56 L 108/51 L Pulse Oximetry 96 Oxygen Delivery Method Nasal Cannula Oxygen Flow Rate 2 04/19/22 05:30 04/19/22 06:00 04/19/22 06:00 Pulse Rate 78 88 Respiratory Rate Blood Pressure 112/67 Pulse Oximetry 96 94 Oxygen Delivery Method Oxygen Flow Rate Oxygen Delivery Method Nasal Cannula Oxygen Flow Rate 2 Narrative Exam Narrative: General: Patient is an elderly female well-nourished, eating in no discomfort at this time in no distress at this time. HEENT: Normocephalic, atraumatic, extraocular muscles intact, oral pharynx is clear and mucous membranes are moist. Neck is supple and symmetric, trachea is midline, no adenopathy, no thyroid enlargement, nontender, no masses palpated. Negative for JVD Chest: no nasal flaring, retractions, or tachypneic labored Lungs: Auscultation of all lung rasheed are clear without adventitious sounds, wheezes, rhonchi, or rales. Cardio: S1 & S2 with regular rate and rhythm without murmur, rubs, or gallops, no carotid bruit, no cardiac pulsations present. Abdomen: Soft nontender, negative for organomegaly, or masses. Bowel sounds are present in all 4 quadrants without guarding or rebound, no CVA tenderness. Pelvis tender with internal external rotation no tenderness to the iliac crest. Musculoskeletal: Muscle strength and tone are equal within normal limits, no crepitus, effusions, cyanosis, clubbing or edema present. right calf pain with palpation, positive Homans. intact radial and pedal pulses are normal. Skin: Warm dry and intact without rashes, ulcerations or petechiae. Neuro: Alert and orientated x3, strength is +5/5 in all extremities, sensation to touch intact, no gross deficits noted of cranial nerves. Psych: Patient has a well-kept appearance, appropriate affect, mental status attitude thought context and judgment are appropriate for age. Objective Labs Result Diagrams: 04/18/22 23:55 04/18/22 23:55 Labs: Laboratory Results - last 24 hr 04/18/22 04/18/22 04/18/22 07:51 08:05 13:25 WBC 9.6 RBC 4.14 Hgb 12.1 Hct 36.7 MCV 88.6 MCH 29.1 MCHC 32.8 RDW 14.6 Plt Count 215 Neut % (Auto) 71.6 Lymph % (Auto) 16.1 L [place] % (Auto) 9.6 Eos % (Auto) 1.8 L Baso % (Auto) 0.9 Neut # (Auto) 6900 Lymph # (Auto) 1500 [place] # (Auto) 900 Eos # (Auto) 200 Baso # (Auto) 100 D-Dimer Sodium 138 Potassium 4.2 Chloride 103 Carbon Dioxide 26 BUN 28 H Creatinine 0.83 Estimated GFR > 60 BUN/Creatinine Ratio 33.7 H Glucose 93 Calcium 9.6 Total Bilirubin 0.6 AST 24 ALT 21 Alkaline Phosphatase 118 Total Creatine Kinase CK-MB (CK-2) CK-MB (CK-2) Rel Index Troponin I Total Protein 8.0 Albumin 4.0 Globulin 4.0 Albumin/Globulin Ratio 1.0 Urine Color Yellow Urine Appearance Clear Urine pH 5.5 Ur Specific Tamms 1.015 Urine Protein Negative Urine Glucose (UA) Negative Urine Ketones Negative Urine Occult Blood Trace-intact Urine Nitrate Negative Urine Bilirubin Negative Urine Urobilinogen 0.2 Ur Leukocyte Esterase Negative Urine RBC 1-5/hpf Urine WBC 0-1/hpf Ur Squamous Epith Cells 0-1 /hpf Amorphous Sediment 1+ Urine Bacteria None seen Ur Culture Indicated? Cult not indicated Chlamy pneumoniae PCR Adenovirus (PCR) B. pertussis DNA (PCR) B.parapertussis DNA PCR Coronavirus OC43 (PCR) Coronavirus HKU1 (PCR) Coronavirus 229E (PCR) SARS-CoV-2 (PCR) Coronavirus NL63 (PCR) Human Metapneumovir PCR Influenza Type A (PCR) Influenza Type B (PCR) M. pneumoniae (PCR) Parainfluenza 1 (PCR) Parainfluenza 2 (PCR) Parainfluenza 3 (PCR) Parainfluenza 4 (PCR) RSV (PCR) Entero/Rhino (PCR) 04/18/22 04/18/22 04/18/22 13:46 21:25 23:55 WBC 10.5 RBC 4.15 Hgb 12.1 Hct 36.5 MCV 87.8 MCH 29.1 MCHC 33.1 RDW 14.8 Plt Count 204 Neut % (Auto) 78.0 H Lymph % (Auto) 10.9 L [place] % (Auto) 8.7 Eos % (Auto) 1.7 L Baso % (Auto) 0.7 Neut # (Auto) 8200 H Lymph # (Auto) 1200 [place] # (Auto) 900 Eos # (Auto) 200 Baso # (Auto) 100 D-Dimer Sodium Potassium Chloride Carbon Dioxide BUN Creatinine Estimated GFR BUN/Creatinine Ratio Glucose Calcium Total Bilirubin AST ALT Alkaline Phosphatase Total Creatine Kinase CK-MB (CK-2) CK-MB (CK-2) Rel Index Troponin I Total Protein Albumin Globulin Albumin/Globulin Ratio Urine Color Urine Appearance Urine pH Ur Specific Tamms Urine Protein Urine Glucose (UA) Urine Ketones Urine Occult Blood Urine Nitrate Urine Bilirubin Urine Urobilinogen Ur Leukocyte Esterase Urine RBC Urine WBC Ur Squamous Epith Cells Amorphous Sediment Urine Bacteria Ur Culture Indicated? Chlamy pneumoniae PCR Not detected Adenovirus (PCR) Not detected B. pertussis DNA (PCR) Not detected B.parapertussis DNA PCR Not detected Coronavirus OC43 (PCR) Not detected Coronavirus HKU1 (PCR) Not detected Coronavirus 229E (PCR) Not detected SARS-CoV-2 (PCR) Negative Not detected Coronavirus NL63 (PCR) Not detected Human Metapneumovir PCR Not detected Influenza Type A (PCR) Not detected Influenza Type B (PCR) Not detected M. pneumoniae (PCR) Not detected Parainfluenza 1 (PCR) Not detected Parainfluenza 2 (PCR) Not detected Parainfluenza 3 (PCR) Not detected Parainfluenza 4 (PCR) Not detected RSV (PCR) Not detected Entero/Rhino (PCR) Not detected 04/18/22 04/18/22 23:55 23:55 WBC RBC Hgb Hct MCV MCH MCHC RDW Plt Count Neut % (Auto) Lymph % (Auto) Cost[place] % (Auto) Eos % (Auto) Baso % (Auto) Neut # (Auto) Lymph # (Auto) Cost[place] # (Auto) Eos # (Auto) Baso # (Auto) D-Dimer 1039 H Sodium 137 Potassium 4.5 Chloride 100 Carbon Dioxide 29 BUN 22 H Creatinine 0.90 Estimated GFR > 60 BUN/Creatinine Ratio 24.4 H Glucose 98 Calcium 9.4 Total Bilirubin 0.9 AST 22 ALT 21 Alkaline Phosphatase 108 Total Creatine Kinase 27 L CK-MB (CK-2) TNP CK-MB (CK-2) Rel Index TNP Troponin I < 0.012 Total Protein 7.7 Albumin 3.9 Globulin 3.8 Albumin/Globulin Ratio 1.0 Urine Color Urine Appearance Urine pH Ur Specific Tamms Urine Protein Urine Glucose (UA) Urine Ketones Urine Occult Blood Urine Nitrate Urine Bilirubin Urine Urobilinogen Ur Leukocyte Esterase Urine RBC Urine WBC Ur Squamous Epith Cells Amorphous Sediment Urine Bacteria Ur Culture Indicated? Chlamy pneumoniae PCR Adenovirus (PCR) B. pertussis DNA (PCR) B.parapertussis DNA PCR Coronavirus OC43 (PCR) Coronavirus HKU1 (PCR) Coronavirus 229E (PCR) SARS-CoV-2 (PCR) Coronavirus NL63 (PCR) Human Metapneumovir PCR Influenza Type A (PCR) Influenza Type B (PCR) M. pneumoniae (PCR) Parainfluenza 1 (PCR) Parainfluenza 2 (PCR) Parainfluenza 3 (PCR) Parainfluenza 4 (PCR) RSV (PCR) Entero/Rhino (PCR) Assessment & Plan Assessment & Plan narrative: Bailey King is an 87-year-old female who resides at [facility] has history of rheumatoid arthritis,osteoarthritis, osteopenia, global weakness, unstable gait uses a walker, and has frequent falls. Patient initially presented to the ED on 04/18 at 7:51 a.m.after a ground level fall 2 nights ago. Initially patient denied shortness of breath dizziness lightheadedness chest pain or palpitations.? In the ED the patient suffered excruciating pain and was unable to bear weight.? Patient had been waiting in the ED for PT OT evaluation, SUPPLY CHAIN ASSISTANT consult and transfer to SNF. When just before midnight she developed shortness of breath and was found to have bilateral pulmonary embolus. 1. Pulmonary embolus, bilateral, acute, with shortness of breath, present on admission-as evidence by CTA -History of DVT 20yrs ago following venous surgery. -Right Calf pain Positive Homans -ordered bilateral lower extremity ultrasound to rule out DVT. -temp 98.2?, 115/54, HR 83, R 18, saturating 98% on 2 L nasal cannula in the ED. -ED initiated Lovenox 1 milligram/kilogram 75 mg -will continue Lovenox 75 mg b.i.d. -monitor for bleeding -chest x-ray demonstrated no acute cardiopulmonary process 2. Ground level fall, left hip injury/pain, acute on chronic, present on admission -chronic sedentary lifestyle, unstable gait requires walker for ambulation, frequent falls, global weakness deconditioning -pelvic CT negative for acute process or fracture, -left hip x-ray demonstrated arthroplasty, left femur ORIF, knee arthroplasty, chronic appreciated fracture distal left femur. -PT/OT/SUPPLY CHAIN ASSISTANT consult-for transfer to SNF-concerns regarding [facility] -pain management medication, ice, lidocaine patch 3. Rheumatoid arthritis, chronic, present on admission -currently taking no medication for management 4. Osteopenia, chronic, present on admission -currently taking no medication for manage 5. Overweight, acute on chronic, present on admission -dietary consult ordered regarding nutritional education and information for di etary, lifestyle, exercise, and weight changes. -the patient is at much higher risk for medical and surgical complications due to being overweight and sedentary lifestyle in addition to unstable gait and frequent falls as it relates to chronic illnesses:, and acute illness. The patient's overweight increases the difficulty and complexity of medical and/or surgical interventions, management and increases the chances of poor outcome such as morbidity and mortality as well as impaired wound healing. Code status:DNR Surrogate decision maker: Daughter Radha VIRAMONTES PCR:Negative DVT/VTE prophylaxis: Lovenox PE treatment, SCDs Disposition: Patient admitted for observation initiation of Lovenox treatment for PEs, monitor for bleeding complications PT OT and SUPPLY CHAIN ASSISTANT evaluation to help facilitate patient's safe transition to SNF, in attempt to prevent future falls or injury. Expected length of stay less than 2 midnights. I have utilized all available immediate resources to obtain, update, or review the patient's current medications. I confirmed that the patient's advanced care plan is present, Code status is documented and/or surrogate decision maker is listed in the patient's medical record. I have personally reviewed patient's chart notes from PCP, specialists, diagnostic imaging, and laboratory, Time Spent With Patient Critical Care time: I spent a total of [] minutes of critical care time on this patient's care today; this time is exclusive of procedural time.
--- NOTE | 2022-04-19 07:19 | DI.US.S_ITS ---
PROCEDURE: US PERIPH VENOUS LOW EXTREM BI INDICATIONS: BILATERAL PULMONARY EMBOLISM. HISTORY OF DVT. SEDENTARY. TECHNIQUE: Real-time imaging, as well as color and pulse Doppler interrogation, were performed of the deep veins of both legs from the inguinal ligament to the popliteal fossa. COMPARISON: None. FINDINGS: Right: The common femoral, femoral and popliteal veins are normally compressible, and free of intraluminal thrombus. Color and pulse Doppler demonstrate normal phasic intravascular flow. There is normal augmentation response to distal compression maneuver. Left: The common femoral, femoral and popliteal veins are normally compressible, and free of intraluminal thrombus. Color and pulse Doppler demonstrate normal phasic intravascular flow. There is normal augmentation response to distal compression maneuver. IMPRESSION: Normal study. Dictated by: Homar Holly M.D. on 04/19/2022 at 9:14 Approved by: Homar Holly M.D. on 04/19/2022 at 9:14
--- NOTE | 2022-04-19 08:16 | PM.PN.1 ---
Subjective Subjective Date Patient Seen: 04/19/22 Interval history: Bailey King is an 87-year-old female who resides at [facility] has history of rheumatoid arthritis,osteoarthritis, osteopenia, global weakness, unstable gait uses a walker, and has frequent falls.? Patient initially presented to the ED on 04/18 at 7:51 a.m.after a ground level fall 2 nights ago.? She says she was using her walker in the shower she had assistance she went to kick a trash can when she landed on her left hip.? She has been ambulatory but it is quite painful for her. Patient indicates that the pain is mostly in her left buttock area at the sitting bone level. Also indicates that she has bilateral plantar fasciitis that complicates her ability to walk. Has been very sedentary at [facility] since her fracture of her left femur. This no symptoms that she is aware of in regards to her pulmonary emboli. Although she is on O2 supplementation to keep her O2 sat at 95% with 2 liters/minute. Exam Vital Signs (past 8 hours): - 04/19/22 00:30 04/19/22 00:30 04/19/22 01:00 Temperature Pulse Rate 72 76 Respiratory Rate Blood Pressure 103/53 L Pulse Oximetry 95 96 Oxygen Delivery Method Oxygen Flow Rate 04/19/22 01:01 04/19/22 01:01 04/19/22 01:30 Temperature Pulse Rate 92 H Respiratory Rate Blood Pressure 116/58 L 108/53 L Pulse Oximetry 97 Oxygen Delivery Method Nasal Cannula Oxygen Flow Rate 2 04/19/22 01:30 04/19/22 02:00 04/19/22 02:01 Temperature Pulse Rate 75 69 Respiratory Rate Blood Pressure 103/54 L Pulse Oximetry 95 96 Oxygen Delivery Method Oxygen Flow Rate 04/19/22 02:01 04/19/22 02:30 04/19/22 02:30 Temperature Pulse Rate 75 70 Respiratory Rate Blood Pressure 105/53 L Pulse Oximetry 97 96 Oxygen Delivery Method Oxygen Flow Rate 04/19/22 03:10 04/19/22 03:12 04/19/22 03:12 Temperature Pulse Rate 86 83 Respiratory Rate Blood Pressure 147/63 H Pulse Oximetry 98 98 Oxygen Delivery Method Oxygen Flow Rate 04/19/22 03:30 04/19/22 03:30 04/19/22 04:00 Temperature Pulse Rate 71 Respiratory Rate Blood Pressure 107/53 L 115/54 L Pulse Oximetry 96 Oxygen Delivery Method Oxygen Flow Rate 04/19/22 04:00 04/19/22 04:30 04/19/22 04:30 Temperature Pulse Rate 83 70 Respiratory Rate Blood Pressure 107/53 L Pulse Oximetry 98 99 Oxygen Delivery Method Oxygen Flow Rate 04/19/22 05:00 04/19/22 05:00 04/19/22 05:30 Temperature Pulse Rate 73 Respiratory Rate 20 Blood Pressure 113/56 L 108/51 L Pulse Oximetry 96 Oxygen Delivery Method Nasal Cannula Oxygen Flow Rate 2 04/19/22 05:30 04/19/22 06:00 04/19/22 06:00 Temperature Pulse Rate 78 88 Respiratory Rate Blood Pressure 112/67 Pulse Oximetry 96 94 Oxygen Delivery Method Oxygen Flow Rate 04/19/22 06:36 04/19/22 06:10 04/19/22 07:00 Temperature 98.3 F Pulse Rate 86 Respiratory Rate 18 Blood Pressure 122/52 L Pulse Oximetry 95 Oxygen Delivery Method Nasal Cannula Room Air Nasal Cannula Oxygen Flow Rate 2 Oxygen Delivery Method Room Air,Nasal Cannula Oxygen Flow Rate 2 Narrative Exam Narrative: General:? Patient is an elderly female well-nourished, eating in no discomfort if stays stationary in bed and in no distress at this time. HEENT:? Normocephalic, atraumatic, extraocular muscles intact.? Neck is supple and symmetric, trachea is midline.? Negative for JVD. Chest: ? no retractions, or tachypnea. Lungs:? Auscultation of all lung rasheed are clear. Cardio:? S1 & S2 with regular rate and rhythm without murmur, rubs, or gallops. Abdomen:? Soft nontender, negative for organomegaly, or masses.? Bowel sounds are present. Musculoskeletal:? Muscle strength and tone are equal within normal limits. Right calf pain with palpation, positive Homans.? intact radial and pedal pulses are normal. S at the tendinous attachment to the left that the left hamstring tendon. Deformities of feet consistent with significant degenerative changes. Tenderness of the plantar fascia bilaterally. Skin:? Warm dry and intact without rashes or lesions.? Left frontal scalp area with changes secondary to treatment for cancerous lesion previously. Neuro:? Alert and orientated x3, strength is +5/5 in all extremities, sensation to touch intact, no gross deficits noted of cranial nerves. Psych:? Patient has a well-kept appearance, appropriate affect, mental status consistent with age. Objective Labs Result Diagrams: 04/18/22 23:55 04/18/22 23:55 Labs: Laboratory Results - last 24 hr 04/18/22 04/18/22 04/18/22 07:51 08:05 13:25 WBC 9.6 RBC 4.14 Hgb 12.1 Hct 36.7 MCV 88.6 MCH 29.1 MCHC 32.8 RDW 14.6 Plt Count 215 Neut % (Auto) 71.6 Lymph % (Auto) 16.1 L [place] % (Auto) 9.6 Eos % (Auto) 1.8 L Baso % (Auto) 0.9 Neut # (Auto) 6900 Lymph # (Auto) 1500 [place] # (Auto) 900 Eos # (Auto) 200 Baso # (Auto) 100 D-Dimer Sodium 138 Potassium 4.2 Chloride 103 Carbon Dioxide 26 BUN 28 H Creatinine 0.83 Estimated GFR > 60 BUN/Creatinine Ratio 33.7 H Glucose 93 Calcium 9.6 Total Bilirubin 0.6 AST 24 ALT 21 Alkaline Phosphatase 118 Total Creatine Kinase CK-MB (CK-2) CK-MB (CK-2) Rel Index Troponin I Total Protein 8.0 Albumin 4.0 Globulin 4.0 Albumin/Globulin Ratio 1.0 Urine Color Yellow Urine Appearance Clear Urine pH 5.5 Ur Specific [place] 1.015 Urine Protein Negative Urine Glucose (UA) Negative Urine Ketones Negative Urine Occult Blood Trace-intact Urine Nitrate Negative Urine Bilirubin Negative Urine Urobilinogen 0.2 Ur Leukocyte Esterase Negative Urine RBC 1-5/hpf Urine WBC 0-1/hpf Ur Squamous Epith Cells 0-1 /hpf Amorphous Sediment 1+ Urine Bacteria None seen Ur Culture Indicated? Cult not indicated Chlamy pneumoniae PCR Adenovirus (PCR) B. pertussis DNA (PCR) B.parapertussis DNA PCR Coronavirus OC43 (PCR) Coronavirus HKU1 (PCR) Coronavirus 229E (PCR) SARS-CoV-2 (PCR) Coronavirus NL63 (PCR) Human Metapneumovir PCR Influenza Type A (PCR) Influenza Type B (PCR) M. pneumoniae (PCR) Parainfluenza 1 (PCR) Parainfluenza 2 (PCR) Parainfluenza 3 (PCR) Parainfluenza 4 (PCR) RSV (PCR) Entero/Rhino (PCR) 04/18/22 04/18/22 04/18/22 13:46 21:25 23:55 WBC 10.5 RBC 4.15 Hgb 12.1 Hct 36.5 MCV 87.8 MCH 29.1 MCHC 33.1 RDW 14.8 Plt Count 204 Neut % (Auto) 78.0 H Lymph % (Auto) 10.9 L [place] % (Auto) 8.7 Eos % (Auto) 1.7 L Baso % (Auto) 0.7 Neut # (Auto) 8200 H Lymph # (Auto) 1200 [place] # (Auto) 900 Eos # (Auto) 200 Baso # (Auto) 100 D-Dimer Sodium Potassium Chloride Carbon Dioxide BUN Creatinine Estimated GFR BUN/Creatinine Ratio Glucose Calcium Total Bilirubin AST ALT Alkaline Phosphatase Total Creatine Kinase CK-MB (CK-2) CK-MB (CK-2) Rel Index Troponin I Total Protein Albumin Globulin Albumin/Globulin Ratio Urine Color Urine Appearance Urine pH Ur Specific [place] Urine Protein Urine Glucose (UA) Urine Ketones Urine Occult Blood Urine Nitrate Urine Bilirubin Urine Urobilinogen Ur Leukocyte Esterase Urine RBC Urine WBC Ur Squamous Epith Cells Amorphous Sediment Urine Bacteria Ur Culture Indicated? Chlamy pneumoniae PCR Not detected Adenovirus (PCR) Not detected B. pertussis DNA (PCR) Not detected B.parapertussis DNA PCR Not detected Coronavirus OC43 (PCR) Not detected Coronavirus HKU1 (PCR) Not detected Coronavirus 229E (PCR) Not detected SARS-CoV-2 (PCR) Negative Not detected Coronavirus NL63 (PCR) Not detected Human Metapneumovir PCR Not detected Influenza Type A (PCR) Not detected Influenza Type B (PCR) Not detected M. pneumoniae (PCR) Not detected Parainfluenza 1 (PCR) Not detected Parainfluenza 2 (PCR) Not detected Parainfluenza 3 (PCR) Not detected Parainfluenza 4 (PCR) Not detected RSV (PCR) Not detected Entero/Rhino (PCR) Not detected 04/18/22 04/18/22 23:55 23:55 WBC RBC Hgb Hct MCV MCH MCHC RDW Plt Count Neut % (Auto) Lymph % (Auto) [place] % (Auto) Eos % (Auto) Baso % (Auto) Neut # (Auto) Lymph # (Auto) [place] # (Auto) Eos # (Auto) Baso # (Auto) D-Dimer 1039 H Sodium 137 Potassium 4.5 Chloride 100 Carbon Dioxide 29 BUN 22 H Creatinine 0.90 Estimated GFR > 60 BUN/Creatinine Ratio 24.4 H Glucose 98 Calcium 9.4 Total Bilirubin 0.9 AST 22 ALT 21 Alkaline Phosphatase 108 Total Creatine Kinase 27 L CK-MB (CK-2) TNP CK-MB (CK-2) Rel Index TNP Troponin I < 0.012 Total Protein 7.7 Albumin 3.9 Globulin 3.8 Albumin/Globulin Ratio 1.0 Urine Color Urine Appearance Urine pH Ur Specific [place] Urine Protein Urine Glucose (UA) Urine Ketones Urine Occult Blood Urine Nitrate Urine Bilirubin Urine Urobilinogen Ur Leukocyte Esterase Urine RBC Urine WBC Ur Squamous Epith Cells Amorphous Sediment Urine Bacteria Ur Culture Indicated? Chlamy pneumoniae PCR Adenovirus (PCR) B. pertussis DNA (PCR) B.parapertussis DNA PCR Coronavirus OC43 (PCR) Coronavirus HKU1 (PCR) Coronavirus 229E (PCR) SARS-CoV-2 (PCR) Coronavirus NL63 (PCR) Human Metapneumovir PCR Influenza Type A (PCR) Influenza Type B (PCR) M. pneumoniae (PCR) Parainfluenza 1 (PCR) Parainfluenza 2 (PCR) Parainfluenza 3 (PCR) Parainfluenza 4 (PCR) RSV (PCR) Entero/Rhino (PCR) [facility] Medical History Anemia (~2020) Ankle pain (~2019) Anxiety (~2018) Cataracts, bilateral Chicken pox Fall at home Foot pain Fractures Gait instability Hearing loss (~2012) Measles Mumps Osteoarthritis Osteopenia Restless leg syndrome (~2020) Retinal detachment (~2004) Rheumatoid arthritis Shoulder pain Uses walker Vertigo Weakness Surgical History Anesthesia Fracture of upper leg History of ankle surgery History of bilateral knee replacement History of left hip replacement History of left shoulder replacement Family History Granddaughter COVID-19 Mother Alcoholism Social History household members: caregiver and none Smoking Status: Never smoker alcohol intake: current Assessment & Plan Assessment & Plan narrative: 1. Pulmonary emboli, bilateral, acute, with shortness of breath, present on admission-as evidence by CTA -History of DVT 20yrs ago following venous surgery. -Right Calf pain Positive Homans - bilateral lower extremity ultrasound to rule out DVT -remains pending. - Lovenox 1 milligram/kilogram 75 mg b.i.d. for 6 doses and then transitioned to rivaroxaban initially 15 mg b.i.d. for 21 days and then 20 mg for completion of 6 months treatment. -monitor for bleeding 2. Ground level fall, left hip injury/pain, acute on chronic, present on admission -chronic sedentary lifestyle, unstable gait requires walker for ambulation, frequent falls, global weakness deconditioning likely secondary to previous left femur fracture recently requiring open reduction internal fixation. -examination reveals tenderness of the tendinous attachment from the hamstring to the pelvis. Likely acute and strain. To settle inflammation prescribed prednisone 30 mg daily for 5 days. Can not use other anti-inflammatories due to being on enoxaparin. -PT/OT/BANK SECRECY ACT OFFICER consult-for transfer to SNF-concerns regarding patient's safety in assisted living facility -pain management medication, ice, lidocaine patch. Continue [place] q.4h as needed and establish a q.6h regular dose. 3. Rheumatoid arthritis, chronic, present on admission -currently taking no medication for management 4. Osteopenia, chronic, present on admission -currently taking no medication for manage 5. Overweight, acute on chronic, present on admission -dietary consult ordered regarding nutritional education and information for dietary, lifestyle, exercise, and weight changes. Time Spent With Patient Critical Care time: I spent a total of [] minutes of critical care time on this patient's care today; this time is exclusive of procedural time. Quality VTE Deep Vein Thrombosis/Pulmonary Embolism Present on Admission: Yes
[2022-04-19] MEDS: FAMOTIDINE 20 MG TABLET PO (09:05)
[2022-04-19] MEDS: predniSONE 20 MG TABLET 30 MG PO (09:05)
[2022-04-19] MEDS: FOLIC ACID 1 MG TABLET PO (09:05)
[2022-04-19] MEDS: ONDANSETRON 4 MG ODT PO (09:05)
[2022-04-19] MEDS: DOCUSATE 100 MG CAPSULE PO ×2 (09:05→20:19)
[2022-04-19] MEDS: HYDROCODONE/ACET 5/325 TABLET 1 TAB PO ×3 (09:13→17:10)
[2022-04-19] MEDS: LIDOCAINE PATCH 1 EACH ADH..PATCH TOP (09:15)
--- NOTE | 2022-04-19 09:34 | CM.DANOTE ---
Addendum entered by Carlene Lucero R.N. 04/19/22 14:53: Spoke to Andreea at [facility]. She indicated that patient gets max level of care at their facility. She is prepared to take her back, but wants her to have good pain control before accepting. She did not yet work with P.T. today, secondary to pain. Will see how she does tomorrow. At this time, it is unclear if she will make inpatient status. Original Note: DCP: Case received, EMR reviewed and met with patient. Introduced self and role. Was able to obtain information regarding patient's baseline activity status at her facility, prior to hospitalization. DCP assessment completed with information currently available. Patient is an 87 year old female who admitted yesterday morning to the care of the hospitalist team. PCP: Dr. Munguia Payer: confirmed: Medicare/[employer]. Patient came to the hospital via ambulance secondary to a ground level fall that occurred at her facility, [facility]. Notes indicate that patient was using her walker in the shower, with assistance, went to kick a trash can, fell, landing on her hip. Patient then, had pain, unable to bear weight. She was down in the ER, but was admitted for Pulmonary Embolus. Left a message with Jaelyn at [facility] for more information. Met with patient, she is alert and oriented, hopes to be able to go back to [facility] instead of skilled rehab. She has assistance with showers, uses a FWW, med assist. She will be working with P.T. today. P: DCP to continue to follow. Will see how she does with P.T, and awaiting call back from [facility]. Patient may need skilled rehab before returning to [facility]. Carlene Lucero RN/Inspector [place] Discharge Planning/Care Management CM Discharge Assessment Start: 04/19/22 09:31 Freq: Status: Active Protocol: Document 04/19/22 09:32 (Rec: 04/19/22 09:33 [id number]) Discharge Planning Assessment Assigned Software Consultant Carlene Lucero RN/Inspector [place] Advance Directives? No History Provided By Patient,Medical Record Prior Living Arrangements Assisted Living Household Members caregiver,none Type of transporation used prior to Relies on Others admit Facility Name Admitted From: [facility] Willing to Return to Facility? Yes Independent with ADL's Yes Is patient alert and oriented? Yes Needs Assistance With Bathing,Meal Prep,Managing Medications,Home Chores / Shopping Caregiver for Another No DME Already Rented / Owned FWW / Walker Patient/Family Preference Half-Way Facility,Home with Home Health Barriers to Discharge Yes Comment May not be able to go to [facility] until she has senior care, but patient wants to go home. Discharge Plan Home with Home Health Transportation Arrangement Facility Referrals Initiated Tile Mechanic Helper,Other Additional Comment Will see how patient does with P.T Review Status In Process Next Review Type Continued Stay Review
[2022-04-19 10:35] LABS: Add Manual Diff / Slide Review NO; Basophils Absolute Auto 100 /uL (0-100); Basophils Percent Auto 0.8 % (0-2); Eosinophils Absolute Auto 200 /uL (0-450); Eosinophils Percent Auto 1.6 % (2-4); Hematocrit 35.1 % (36-46); Lymphocytes Absolute Auto 1200 /uL (1100-4500); Lymphocytes Percent Auto 11.3 % (25-40); Mean Corpuscular HGB Conc 34.2 % (30-36); Mean Corpuscular Volume 87.7 fL (80-100); Monocytes Absolute Auto 1100 /uL (0-900); Monocytes Percent Auto 9.6 % (3-14); Neutrophils Absolute Auto 8400 /uL (1500-7000); Neutrophils Percent Auto 76.7 % (50-75); Platelet Count 194 X10^3/uL (150-400); Red Cell Distribution Width 14.6 % (11.6-14.8); White Blood Cell Count 10.9 X10^3/uL (4.5-11.0)
[2022-04-19 10:55] LABS: BUN Creatinine Ratio 26.9 (6-22); Blood Urea Nitrogen 29 mg/dL (7-17); Calcium 9.3 mg/dL (8.4-10.2); Carbon Dioxide 31 mmol/L (22-32); Chloride 98 mmol/L (98-107); Estimated Glomerular Filt Rate 50 mL/min (>60); Glucose 102 mg/dL (80-110); HEMOLYSIS < 15 (0-50); Potassium 4.3 mmol/L (3.4-5.1); Sodium 138 mmol/L (137-145)
--- NOTE | 2022-04-19 10:55 | PT-IP ANOTE ---
Pt initially resistant, although willing, to participate in therapy, however immediately upon attempting to move her left leg, decided she was in too much pain and refused to do anything else at this time.
[2022-04-19 11:04] LABS: NT-proBNP (BNP-Adult 18+) 199 pg/mL (<450)
--- NOTE | 2022-04-19 14:30 | PT.IPTN ---
Current Diagnoses Other pulmonary embolism without acute cor pulmonale (04/19/22) Physical Therapy Treatment Note M2 PT-IP Current Condition Start: 04/18/22 15:22 Freq: Status: Active Protocol: Document 04/18/22 15:50 [facility] (Rec: 04/18/22 16:01 [facility] [id number]) Physical Therapy Current Condition Current Condition Evaluation Date 04/18/22 Treatment Diagnosis difficulty in walking M3 PT-IP Subjective Start: 04/18/22 15:22 Freq: Status: Active Protocol: Document 04/19/22 14:30 [facility] (Rec: 04/19/22 17:55 [facility] [id number]) Subjective Physical Therapy Visit Type Type Treatment Note Visit Start Time 13:57 Visit Stop Time 14:28 Total Visit Minutes 31 Number of TEMP RECRUITER Visits 0 Physical Therapy Visit Comments Patient Comments Pt agrees to try mobility. Notes she is afraid of pain Therapy Pain Assessment Pain When Pain Assessed During Mobility Pain Present Pain Present Pain Reported Location Left Hip Pain Management Techniques Re-positioning,Timing of Activity with Medications M4 PT-IP Mobility and Gait Start: 04/18/22 15:22 Freq: Status: Active Protocol: Document 04/19/22 14:30 [facility] (Rec: 04/19/22 17:55 [facility] [id number]) PT-Bed Mobility Assessment Supine to Sit Supine to Sit Maximum Assistance,2 Person Assistance Scooting Scooting to Edge of Bed Maximum Assistance PT-Transfer Assessment Sit to and From Stand Sit to and from Stand Maximum Assistance,2 Person Assistance,Use of Upper Extremities Equipment Transfer Assistive Device Gait Belt,Front Wheeled Walker Orthotic/Prosthetic Devices or Brace: No Comments Mobility Comments supine to sit max A x2; Scoot to EOB max A x1 w/cues for pt to push w/arms and wt shift side to side to assist. sit to stand max A x2 to FWW and stood w/max A x1 at FWW while brief was fastened better ( about 30 sec). She then amb w/ encouragment 4 ft fwd w/FWW w/ max Ax2. Chair pulled behind pt after and pt sat max A x2. Pt stood to FWW partially again w/max A x2 to FWW then sat reporting she couldtn stand longer. Gait Assessment Gait Gait Assistance Required: Maximum Assistance,2 Person Assist Distance (Feet) 4 Able to Maintain Weight Bearing Status Yes During Gait M5 PT-IP Objective Assessments Start: 04/18/22 15:22 Freq: Status: Active Protocol: Document 04/18/22 15:50 [facility] (Rec: 04/18/22 16:01 [facility] [id number]) Orientation Orientation/Cognition Level of Alertness Alert Language Function Ability No Deficits Noted Safety Awareness Understands Safety Issues Memory Description No Deficits Noted Gross Range of Motion Lower Extremity ROM Assessment Left Impaired Impairments will not actively move LLE nad reluctant to let PT do any L hip PROM Strength Lower Extremity Strength Assessment Bilaterally Impaired Hip L grossly 2-/5 d/t pain and R grossly 3+/5 Knee L grossly 2-/5 d/t pain and R grossly 3+/5 Ankle WFL M6 PT-IP Treatment Start: 04/18/22 15:22 Freq: Status: Active Protocol: Document 04/19/22 14:30 [facility] (Rec: 04/19/22 17:55 [facility] [id number]) Physical Therapy Treatment Education Education Provided Safety M7 PT-IP Assessment and Plan Start: 04/18/22 15:22 Freq: Status: Active Protocol: Document 04/19/22 14:30 [facility] (Rec: 04/19/22 17:55 [facility] [id number]) PT Summary Assessment and Plan Summary Impairments Pain,ROM,Strength,Balance,Bed Mobility,Transfers,Gait, Activity Tolerance Assessment Summary Pt has significant L hip pain still that limits her mobility . She required max A x2 again today but did show greater ability to stand for longer and to amb fwd w/FWW for about 4 ft but that was her max distance.S he had to be cued to keep walker close to her. Goals Bed Mobility Goal Moderate Assistance Transfer Goal Moderate Assistance Gait Goal Minimal Assistance,Front Wheel Walker Gait Distance 40ft Days to Meet Goals 8 Frequency of Treatment Frequency Of Treatment Once a Day Treatment Plan Physical Therapy Treatment Plan Bed Mobility Training,Transfer Training,Gait Training, Therapeutic Exercise,Balance Retraining,Hot or Cold Pack, Neuromuscular Re-ed,Manual Therapy Other Recommendations and Next Treatment work on bed mobility and gait Focus Weight Bearing Status Weight Bearing Status Weight Bear as Tolerated Recommendations To Nursing Amount of Assist Needed 2 Person Assist,Mechanical Lift,Power Sit-Stand Discharge Recommendations PT Discharge Recommendations SNF Rehab Transportation Needs at Discharge Wheelchair/Cabulance
[2022-04-19] MEDS: ENOXAPARIN 80 MG/0.8 ML SYRINGE 75 MG SUBCUT (20:19)
[2022-04-19] MEDS: SODIUM CHLORIDE 0.9% FLUSH 10 ML IV (20:20)
[2022-04-19] MEDS: SERTRALINE 50 MG TABLET 100 MG PO (20:20)
[2022-04-19] MEDS: SENNOSIDES 8.6 MG TABLET 17.2 MG PO (20:20)
[2022-04-20] VITALS (8 sets, daily range): BP systolic 106–143; BP diastolic 42–66; PULSE 73–88; RESP 16–18; TEMP 36.1–37.3; O2SAT 91–96
--- NOTE | 2022-04-20 00:41 | PC.NURSE ---
Addendum entered by Rupal Camacho R.N. 04/20/22 04:46: Oxygen removed and sat is 93% on RA. Addendum entered by Rupal Camacho R.N. 04/20/22 00:54: Earlier noted that orders for famotidine, folic acid, miralax and sertraline were orders from ER so verified with Daniel DEMPSEY who approved that those meds should be continued. Also noted she has orders for both scheduled and prn Vicodin and PROGRAM DIRECTOR/MUSIC DIRECTOR ordered that scheduled vicodin should be discontinued. Original Note: Patient is alert and oriented. Breath sounds CTA but is on oxygen at 2L/min per NC at shift change with sat of 95% so decreased to 1L/min and sat is now at 96% so will plan to wean as able. HRR. Denies nausea. BT present and abdomen is soft; has not had a BM since 04/16 and is currently on colace and senna. Incontinent of urine so Purewick placed once back in bed. Is needing assist to reposition q2h. Transferred from chair to bed at time of assessment using walker and 2 assist but did poorly and had difficulty moving her legs so will need to use Javier. Complained of burning pain in left hip with severity of 5/10 but was not due for additional Vicodin at the time and is currently asleep; declined ice pack. Bilateral calf SCD's applied. Fall risk score is high and bed alarm is activated.
[2022-04-20] MEDS: HYDROCODONE/ACET 5/325 TABLET 1 TAB PO ×3 (04:03→15:20)
[2022-04-20 07:14] LABS: Add Manual Diff / Slide Review NO; Basophils Absolute Auto 100 /uL (0-100); Basophils Percent Auto 1.1 % (0-2); Eosinophils Absolute Auto 100 /uL (0-450); Eosinophils Percent Auto 0.7 % (2-4); Hematocrit 33.2 % (36-46); Hemoglobin 11.3 g/dL (12.0-16.0); Lymphocytes Absolute Auto 1200 /uL (1100-4500); Lymphocytes Percent Auto 12.9 % (25-40); Mean Corpuscular HGB Conc 34.2 % (30-36); Mean Corpuscular Hemoglobin 29.8 PG (26-34); Mean Corpuscular Volume 87.1 fL (80-100); Monocytes Absolute Auto 900 /uL (0-900); Monocytes Percent Auto 9.5 % (3-14); Neutrophils Absolute Auto 7100 /uL (1500-7000); Neutrophils Percent Auto 75.8 % (50-75); Platelet Count 187 X10^3/uL (150-400); Red Blood Cell Count 3.81 X10^6/uL (4.0-5.2); Red Cell Distribution Width 13.9 % (11.6-14.8); White Blood Cell Count 9.4 X10^3/uL (4.5-11.0)
[2022-04-20 07:43] LABS: BUN Creatinine Ratio 36.7 (6-22); Blood Urea Nitrogen 33 mg/dL (7-17); Calcium 9.2 mg/dL (8.4-10.2); Carbon Dioxide 29 mmol/L (22-32); Chloride 99 mmol/L (98-107); Estimated Glomerular Filt Rate > 60 mL/min (>60); Glucose 88 mg/dL (80-110); HEMOLYSIS < 15 (0-50); Potassium 4.1 mmol/L (3.4-5.1); Sodium 137 mmol/L (137-145)
[2022-04-20] MEDS: DOCUSATE 100 MG CAPSULE PO ×2 (09:12→20:46)
[2022-04-20] MEDS: FOLIC ACID 1 MG TABLET PO (09:12)
[2022-04-20] MEDS: FAMOTIDINE 20 MG TABLET PO (09:13)
--- NOTE | 2022-04-20 09:23 | PT-IP ANOTE ---
Pt refused in am ~9:15. Waiting for pain meds.
--- NOTE | 2022-04-20 09:35 | PC.NURSE ---
Patient given 1 vicodin for complaints of discomfort to legs 01/31. She will be working with physical therapy later today. Patient is alert and oriented x4. Ate some at breakfast. Patients bs are cta and she is on ra.
--- NOTE | 2022-04-20 11:10 | CM.DPC ---
Addendum entered by Carlene Lucero R.N. 04/20/22 12:28: Dr. Booth has decided not to discharge patient as of yet. He wants to check her lumbar region, since she continues to have pain. Called [facility], left message with certified nursing attendant, Andreea, and called the main number and let them know so bulk driver will not arrive. Original Note: DCP Cont: Spoke to Andreea at [facility], they are willing to accept back, as long as she has adequate pain meds on board. Updated Dr. Booth, after speaking to patient. academic support director time is 1330. Patient wants to continue with [facility] at their facility. Updated nurse, Shell. Dr. Booth will complete DC orders. P: DCP to continue to follow. Patient should be discharging back to [facility] today. Carlene Lucero RN/Production Worker
--- NOTE | 2022-04-20 12:10 | OT.IP.EVAL ---
Current Diagnoses Other pulmonary embolism without acute cor pulmonale (04/19/22) Past Medical History (Last Reviewed 04/19/22 @ 06:14 by EKNTRELL Holcomb-INOCENCIO) Anemia (~2020) Ankle pain (~2019) Anxiety (~2018) Cataracts, bilateral Chicken pox Fall at home Foot pain Fractures Gait instability Hearing loss (~2012) Measles Mumps Osteoarthritis Osteopenia Restless leg syndrome (~2020) Retinal detachment (~2004) Rheumatoid arthritis Shoulder pain Uses walker Vertigo Weakness Surgical History (Last Reviewed 04/19/22 @ 06:14 by KENTRELL Holcomb-INOCENCIO) Anesthesia Fracture of upper leg History of ankle surgery History of bilateral knee replacement History of left hip replacement History of left shoulder replacement Occupational Therapy Inpatient Evaluation/Re-Eval M1 PT/OT-IP Prior Functional Status Start: 04/18/22 15:22 Freq: Status: Active Protocol: Document 04/20/22 11:35 [facility] (Rec: 04/20/22 13:38 [facility] [id number]) Medical Review Prior Functional Status Medical History Reviewed Yes Diet/Fluid Consistency Regular Communication WNL Mobility and Gait pt has 1PA at [facility] for all mobility w/FWW & Bed mobility Activities of Daily Living and IADL's Pt requires assist for dressing, toileting and bathing and all ADLS and IADLs Social History Household Members caregiver,none Living Arrangements Assisted Living Number of Floors (Floors) One Floor Home Environment High Toilet,Walk in Shower Home Equipment Grab Bars Near Toilet,Grab Bars In Shower M2 OT-IP Current Condition Start: 04/20/22 13:21 Freq: Status: Active Protocol: Document 04/20/22 11:35 [facility] (Rec: 04/20/22 13:38 [facility] [id number]) Occupational Therapy Current Condition Current Condition Evaluation Date 04/20/22 Treatment Diagnosis GLF, BPE, SOB, weakness Diagnosis Onset Date 04/19/22 M3 OT- IP Subjective and Pain Start: 04/20/22 13:21 Freq: Status: Active Protocol: Document 04/20/22 11:35 [facility] (Rec: 04/20/22 13:38 [facility] [id number]) OT- Subjective Occupational Therapy Visit Type Type Initial Evaluation Visit Start Time 11:35 Visit Stop Time 12:10 Total Visit Minutes 35 Occupational Therapy Visit Comments Patient Comments Pt agreed to get up for lunch. Hospitalist came in to access her lower back pain and to order spinal scan as pt having very localized pain with palpation and when trying to lift and abduct her left leg at this time. Patient/Caregiver Goals TO go home. OT Pain Assessment Pain When Pain Assessed During Mobility Pain Present Pain Present Pain Reported Location Lower Back Intensity 10 M4 OT- IP ADL's Start: 04/20/22 13:21 Freq: Status: Active Protocol: Document 04/20/22 11:35 [facility] (Rec: 04/20/22 13:38 [facility] [id number]) OT ITM-Qqid-Nttcmzk General Evaluation Self-Feeding Ability Standby Assistance Areas Needing Assistance Opening Containers Comments OT Self-Feeding Comments VC to sit upright and take her time to eat. Pt states recently prior to coming to the hospital has had trouble to swallow her liquids at times. Suggested for pt to do AREA OPERATIONS MANAGER eval, pt refused. Continue to monitor. OT ADL-Grooming Comments OT Grooming Comments Pt able to wash her hands after set-up of wash cloth. OT ADL-Oral Care Comments Oral Care Comments Not performed. OT ADL-Dressing General Eval Lower Body Dressing Ability Total Assistance Comments OT Dressing Comments dependent for socks OT ADL-Toileting General Evaluation Toileting Ability Total Assistance Comments OT Toileting Comments Purewick in place OT ADL-Bathing Comments OT Bathing Comments Sponge bath more appropriate at this time. M5 OT- IP IADL's Start: 04/20/22 13:21 Freq: Status: Active Protocol: Document 04/20/22 11:35 [facility] (Rec: 04/20/22 13:38 [facility] [id number]) OT-Instrumental Activities of Daily Living Home Safety Awareness Awareness of Need for Assistance at Home Good Awareness Money Management Money Management Caregiver Provides Assistance Meal Preparation Meal Preparation Caregiver Provides Assist Coach Professional Athletes Coach Professional Athletes Caregiver Provides Assist M6 OT- IP Functional Cognition Start: 04/20/22 13:21 Freq: Status: Active Protocol: Document 04/20/22 11:35 [facility] (Rec: 04/20/22 13:38 [facility] [id number]) Cognitive Factors Limiting Selfcare Function Cognitive Ability Level of Alertness Alert Patient Orientation Name,Place,Situation Attention Span Ability Capable of Focused Attention, Capable of Sustained Attention Ability to Follow Commands Able to Follow One Step Commands Cognitive Comments Cognitive Assessment Comments Pt able to follow commands for mobility and ADl needs. To continue to assess, but seems like maybe at her baseline. OT- Vision and Hearing OT- Hearing Assessment OT- Hearing Assessment WFL OT- Vision Assessment Visual Acuity Glasses All The Time Vision Assessment Comments Pt able to read the clock accurately. M7 OT- IP Mobility and Balance Start: 04/20/22 13:21 Freq: Status: Active Protocol: Document 04/20/22 11:35 [facility] (Rec: 04/20/22 13:38 [facility] [id number]) OT- Bed Mobility Assessment Rolling Level of Assistance Maximum Assistance,1 Person Assistance,Bedrails OT-Transfer Assessment Comments Mobility Comments At this time pt unable to lift her left leg and having too much pain even with assistance to help move her LLE. M8 OT- IP Objective Assessments Start: 04/20/22 13:21 Freq: Status: Active Protocol: Document 04/20/22 11:35 [facility] (Rec: 04/20/22 13:38 [facility] [id number]) OT Gross Range of Motion Upper Extremity Range of Motion Assessment Bilaterally Impaired OT Strength Comments Strength Comments Did not formally assess at least 3-/5 at this time. OT-Muscle Tone Assessment Muscle Tone WNL Yes M9 OT- IP Assessment and Plan Start: 04/20/22 13:21 Freq: Status: Active Protocol: Document 04/20/22 11:35 [facility] (Rec: 04/20/22 13:38 [facility] [id number]) OT Summary Assessment and Plan Potential Rehabilitation Potential Fair Analytic Complexity at Evaluation Moderate Summary OT Impairments Pain,Range of Motion,Strength, Balance,Coordination, Functional Mobility,Dressing, Toileting,Bathing,Toilet Transfers,Shower Transfers, Activity Tolerance Progress Towards Goals Slow Progress due to Pain,Slow Progress due to Medical Issues,Slow Progress due to Activity Tolerance Assessment Summary Pt MOD complexity due to pain, recent falls, and now per yesterday needing MAX AX 2 for bed mobility needs. Today pt unable to more as having too much pain even when assist to help lift her LLE. Hospitalist now requesting a lumbar scan for pt . Pt would benefit form skilled rehab as per pt her facility able to provide one person assist for her and occasionally two person assist. Goals Grooming Goal Standby Assistance Dressing Goal Moderate Assistance Toileting Goal Moderate Assistance Bathing Goal Moderate Assistance Toilet Transfer Goal Moderate Assistance Shower Transfer Goal Moderate Assistance Days to Meet Goals 25 Frequency of Treatment Frequency Of Treatment Once a Day Treatment Plan OT Treatment Plan ADL Training,Functional Mobility,Patient/Family Education,Discharge Planning Other Treatment Recommendations and Next Transfer to [facility] with MAX AX 2 Treatment Focus with FWW. Discharge Recommendations OT Discharge Recommendations SNF Rehab Transportation Needs at Discharge Wheelchair/Cabulance,Stretcher /Ambulance
--- NOTE | 2022-04-20 12:12 | DI.CT.S_ITS ---
PROCEDURE: CT LUMBAR SPINE WO CON INDICATIONS: Pain, please evaluate for vert fx TECHNIQUE: Noncontrast 3 mm thick sections acquired from the T12 level to the sacrum. Sagittal and coronal reformats were constructed. For radiation dose reduction, the following was used: automated exposure control. COMPARISON: [facility], CT, CT CHEST ABD PEL W CON, 10/05/2021, 15:49. FINDINGS: Image quality: Excellent. Bones: In this patient with this given history, scrutiny is given to to an acute fracture. None can be seen. Moderate dextroconvex thoracolumbar scoliosis is seen. There is minimal retrolisthesis seen at T12-L1 and at L1-L2. No suspicious lytic or blastic lesions are seen. T12-L1: Moderate loss of disc height is seen. Macrovascular Mild generalized disc bulge is seen. There is moderate to severe bilateral neural foraminal narrowing seen. Mild central canal narrowing is seen. L1-L2: Moderate loss of disc height is seen. Vacuum disc phenomenon is seen at this level. Moderate generalized disc bulge is seen. Moderate facet joint hypertrophy is seen. There is at least moderate right-sided and moderate to severe left-sided neural foraminal narrowing. Moderate central canal narrowing is seen. L2-L3: Mild loss of disc height is seen on the left side. Mild generalized disc bulge is seen. Moderate bilateral neural foraminal narrowing is seen. Moderate central canal narrowing is seen. L3-L4: There is at least moderate left-sided disc space narrowing. Moderate generalized disc bulge is seen. There is at least moderate bilateral neural foraminal narrowing. Moderate central canal narrowing is seen. L4-L5: Moderate to severe loss disc height is seen on the right. Endplate irregularity and sclerosis can be seen. At least moderate facet hypertrophy can be seen, right worse than left. There is moderate to severe right-sided and at least moderate left-sided neural foraminal narrowing. Moderate central canal narrowing is seen. L5-S1: Mild loss of disc height is seen on the right side. Vacuum disc phenomenon is seen at this level. Mild generalized disc bulge is seen. There is moderate right-sided and no significant left-sided neural foraminal narrowing. No significant central canal narrowing can be seen. Soft tissues: No retroperitoneal masses or hematomas. Visualized aorta is normal in caliber. Atherosclerotic calcification is noted. Cholecystectomy clips are seen. Colonic diverticulosis is seen, without findings of active diverticulitis. At the inferior aspect of the left kidney, there is a 5.6 cm water density cyst seen. IMPRESSION: No acute displaced fracture can be seen. Moderate dextroconvex scoliosis. Multiple levels underlying degenerative change can be seen. Additional findings: Cholecystectomy Simple left renal cyst Diverticulosis, without active diverticulitis Dictated by: Darron Dumont M.D. on 04/20/2022 at 13:47 Approved by: Darron Dumont M.D. on 04/20/2022 at 13:56
--- NOTE | 2022-04-20 14:34 | PM.PN.1 ---
Subjective Subjective Date Patient Seen: 04/20/22 Interval history: 87-year-old female who resides at [facility] has history of rheumatoid arthritis,osteoarthritis, osteopenia, global weakness, unstable gait uses a walker, and has frequent falls. Is a admitted after ground level fall resulting in apparent left hip/hamstring injury without fracture. This morning patient localizes area of discomfort to the lower and sacral midline area. She has great deal of pain with did passive or active movement of the left leg. PT unable to mobilize her out of bed this morning due to severe pain. She does not have pain when lying flat at rest however. Exam Vital Signs (past 8 hours): - 04/20/22 08:00 04/20/22 12:00 Temperature 97.2 F L 97.3 F L Pulse Rate 88 73 Respiratory Rate 18 18 Blood Pressure 118/66 143/61 H Pulse Oximetry 92 94 Oxygen Flow Rate 1 0 Fraction of Inspired Oxygen 24 SaO2/FiO2 Ratio 400 Oxygen Delivery Method Nasal Cannula Oxygen Flow Rate 0 Narrative Exam Narrative: General: Alert female who is cooperative, not in pain lying on back without moving leg Lungs: Clear Heart: Regular rhythm Abdomen: Soft and nontender Extremities: Nonedematous Back: Focally tender over L5-S1 area, not tender over the sacrum sides or front of hip Neuro: Distal leg sensation intact, has great deal of pain with minimal attempted passive or active left leg elevation Objective Labs Result Diagrams: 04/20/22 06:44 04/20/22 06:44 Labs: Laboratory Results - last 24 hr 04/20/22 04/20/22 06:44 06:44 WBC 9.4 RBC 3.81 L Hgb 11.3 L Hct 33.2 L MCV 87.1 MCH 29.8 MCHC 34.2 RDW 13.9 Plt Count 187 Neut % (Auto) 75.8 H Lymph % (Auto) 12.9 L Mccormick % (Auto) 9.5 Eos % (Auto) 0.7 L Baso % (Auto) 1.1 Neut # (Auto) 7100 H Lymph # (Auto) 1200 Mccormick # (Auto) 900 Eos # (Auto) 100 Baso # (Auto) 100 Sodium 137 Potassium 4.1 Chloride 99 Carbon Dioxide 29 BUN 33 H Creatinine 0.90 Estimated GFR > 60 BUN/Creatinine Ratio 36.7 H Glucose 88 Calcium 9.2 [facility] Medical History Anemia (~2020) Ankle pain (~2019) Anxiety (~2018) Cataracts, bilateral Chicken pox Fall at home Foot pain Fractures Gait instability Hearing loss (~2012) Measles Mumps Osteoarthritis Osteopenia Restless leg syndrome (~2020) Retinal detachment (~2004) Rheumatoid arthritis Shoulder pain Uses walker Vertigo Weakness Surgical History Anesthesia Fracture of upper leg History of ankle surgery History of bilateral knee replacement History of left hip replacement History of left shoulder replacement Family History Granddaughter ZAIDID-19 Mother Alcoholism Social History household members: caregiver and none Smoking Status: Never smoker alcohol intake: current Assessment & Plan Assessment & Plan narrative: 1. Ground level fall, lumbar/sacral sprain or other injury -severe pain attempted passive/active left leg elevation and unable to mobilize out of bed with PT -previous left femur fracture -CT of pelvis not showing a new fracture -negative venous duplex of left leg -obtain lumbar spine CT, rule out vertebral fracture -continue PT and OT -at baseline patient requires 1 person assistance with getting out of bed or chair and with walking -continue acetaminophen and hydrocodone as needed, Lidoderm patch q.d. 2. Rheumatoid arthritis, chronic, present on admission -currently taking no medication for management 3. Osteopenia, chronic, present on admission -patient on daily vitamin-D, add calcium b.i.d. 4. Pulmonary embolism ruled out, initial repeat by night radiology was in error Time Spent With Patient Critical Care time: I spent a total of [] minutes of critical care time on this patient's care today; this time is exclusive of procedural time. Quality VTE Deep Vein Thrombosis/Pulmonary Embolism Present on Admission: Yes
--- NOTE | 2022-04-20 15:13 | OT.IPNOTE ---
Went to double check with pt regarding to try to get up to reassess her mobility needs, she adamantly refusing at this time, however requesting to get pain meds, nurse notified.
--- NOTE | 2022-04-20 15:29 | PT-IP ANOTE ---
checked on pt and pt refused PT. stated that she had excruciating pain on her back when she went for CT scan. wants pain meds but when PT told her that PT will checked back after she had her pain meds, pt still refused PT. stated that if she is still her tomorrow, she might do PT but has to had her pain meds first. educated pt on mobility level and d/c plan. Pt understood. will f/u.
[2022-04-20] MEDS: SENNOSIDES 8.6 MG TABLET 17.2 MG PO (20:46)
[2022-04-20] MEDS: SERTRALINE 50 MG TABLET 100 MG PO (20:46)
[2022-04-20] MEDS: SODIUM CHLORIDE 0.9% FLUSH 10 ML IV (20:46)
--- NOTE | 2022-04-20 23:38 | PC.NURSE ---
Addendum entered by Rupal Camacho R.N. 04/21/22 06:31: Patient declined Miralax this morning. Original Note: Patient is alert and oriented. Wearing bilateral hearing aids. Breath sounds CTA with RA sat of 92%. HRR. Denies nausea. BT present and is passing flatus but has not had a BM since 04/16; given Colace and Senna and will provide Miralax in the morning. Is incontinent of urine so purewick is in place. Needing help to reposition q2h. Has difficulty walking so is working with PT; nursing is using Javier although reportedly refused to get of bed today. Bilateral calf SCD's applied. Dressing to right forearm is CDI. States pain with movement was only 2/10 tonight so declined need for vicodin. Fall risk score is high and bed alarm is activated.
[2022-04-21 03:35] VITALS: BP 138/63; PULSE 85; RESP 16; TEMP 36.6; O2SAT 91
[2022-04-21] MEDS: HYDROCODONE/ACET 5/325 TABLET 1 TAB PO ×2 (05:18→20:19)
[2022-04-21 07:00] VITALS: BP 111/45; PULSE 81; RESP 16; TEMP 36.1; O2SAT 93
[2022-04-21] MEDS: FAMOTIDINE 20 MG TABLET PO (09:03)
[2022-04-21] MEDS: FOLIC ACID 1 MG TABLET PO (09:03)
[2022-04-21] MEDS: DOCUSATE 100 MG CAPSULE PO ×2 (09:03→20:19)
[2022-04-21] MEDS: ENOXAPARIN 40 MG/0.4 ML SYRINGE SUBCUT (09:04)
[2022-04-21] MEDS: LIDOCAINE PATCH 1 EACH ADH..PATCH TOP (09:04)
[2022-04-21] MEDS: SODIUM CHLORIDE 0.9% FLUSH 10 ML IV ×2 (09:05→20:23)
[2022-04-21 11:00] VITALS: BP 115/55; PULSE 78; RESP 16; TEMP 36.2; O2SAT 94
--- NOTE | 2022-04-21 12:21 | CM.DPC ---
Addendum entered by Iesha Stanley R.N. 04/21/22 14:36: Pt agreeable to paying the amount listed below. Pt states her checkbook is back at [facility] and her son will have to bring it to her tomorrow. Spoke with [facility] and provided this information. September stating an 1100 transport to [facility] and needing new covid swab. DCP to get COVID swab order. DCP to continue to follow. Iesha Stanley RN/CHICAP Addendum entered by Iesha Stanley R.N. 04/21/22 13:35: Per September, pt is accepted under private pay. It would be $420/day and the facility would need 30 days up front which would be $12,600 on admission via check or credit card. DCP to relay this information to the patient. DCP to be in contact with [facility]. ADJ Addendum entered by Iesha Stanley R.N. 04/21/22 12:24: [facility] referral submitted. ADJ Original Note: DCP Cont: Spoke with hospitalist this morning and pt requesting to go to rehab. Pt willing to pay out of pocket expenses. Per , pt was @ [facility] before but open to [facility] as well. Pt still unable to work with PT due to severe pain. DCP spoke with Andreea this morning to discuss patient situation and Andreea fully aware. DCP to continue to follow Iesha Stanley RN/CHICAP
--- NOTE | 2022-04-21 13:01 | PM.PN.1 ---
Subjective Subjective Date Patient Seen: 04/21/22 Interval history: 87-year-old female who resides at [facility] has history of rheumatoid arthritis,osteoarthritis, osteopenia, global weakness, unstable gait uses a walker, and has frequent falls.? Is a admitted after ground level fall resulting in apparent left hip/hamstring injury without fracture.? Patient's lumbar CT did not vertebral fracture. She continues to have significant pain with any passive or active elevation of the left leg. The pain seems localized to the sacral area some radiation down the back leg to the knee. There is no numbness or tingling. She does not have pain unless trying to lift up the left leg. She is willing to pay for intermediate rehab. Exam Vital Signs (past 8 hours): - 04/21/22 07:00 Temperature 97 F L Pulse Rate 81 Respiratory Rate 16 Blood Pressure 111/45 L Pulse Oximetry 93 Oxygen Flow Rate 0 Fraction of Inspired Oxygen 24 SaO2/FiO2 Ratio 400 Oxygen Delivery Method Room Air Oxygen Flow Rate 0 Narrative Exam Narrative: General: Alert and pleasant female in no acute distress Lungs: Clear Heart: Regular rhythm Extremities: No distal edema Musculoskeletal: There is pain with any degree of passive/active left leg elevation, touch sensation intact Objective Labs Result Diagrams: 04/20/22 06:44 04/20/22 06:44 [facility] Medical History Anemia (~2020) Ankle pain (~2019) Anxiety (~2018) Cataracts, bilateral Chicken pox Fall at home Foot pain Fractures Gait instability Hearing loss (~2012) Measles Mumps Osteoarthritis Osteopenia Restless leg syndrome (~2020) Retinal detachment (~2004) Rheumatoid arthritis Shoulder pain Uses walker Vertigo Weakness Surgical History Anesthesia Fracture of upper leg History of ankle surgery History of bilateral knee replacement History of left hip replacement History of left shoulder replacement Family History Granddaughter COVID-19 Mother Alcoholism Social History household members: caregiver and none Smoking Status: Never smoker alcohol intake: current Assessment & Plan Assessment & Plan narrative: 1. Ground level fall, lumbar/sacral sprain or hamstrings injury -severe pain attempted passive/active left leg elevation and unable to mobilize out of bed with PT -previous left femur fracture -CT of pelvis not showing a new fracture -negative venous duplex of left leg -lumbar CT, no vertebral fracture, multilevel degenerative disc disease -continue PT and OT -at baseline patient requires 1 person assistance with getting out of bed or chair and with walking -continue acetaminophen and hydrocodone as needed, Lidoderm patch q.d. -SNF rehab 2. Rheumatoid arthritis, chronic, present on admission -currently taking no medication for management 3. Osteopenia, chronic, present on admission -patient on daily vitamin-D, add calcium b.i.d. 4. Pulmonary embolism ruled out, initial reading by night radiology was in error Time Spent With Patient Critical Care time: I spent a total of [] minutes of critical care time on this patient's care today; this time is exclusive of procedural time. Quality VTE Deep Vein Thrombosis/Pulmonary Embolism Present on Admission: Yes
--- NOTE | 2022-04-21 14:25 | PT.IPTN ---
Current Diagnoses Other pulmonary embolism without acute cor pulmonale (04/19/22) Physical Therapy Treatment Note M2 PT-IP Current Condition Start: 04/18/22 15:22 Freq: Status: Active Protocol: Document 04/21/22 13:55 SP (Rec: 04/21/22 17:38 SP [id number]) Physical Therapy Current Condition Current Condition Evaluation Date 04/18/22 Treatment Diagnosis difficulty in walking M3 PT-IP Subjective Start: 04/18/22 15:22 Freq: Status: Active Protocol: Document 04/21/22 13:55 SP (Rec: 04/21/22 17:38 SP [id number]) Subjective Physical Therapy Visit Type Type Treatment Note Visit Start Time 11:38 Visit Stop Time 14:25 Total Visit Minutes 47 Notes Split tx: [id number], [id number] . Number of RESEARCH CONSULTANT Visits 1 Physical Therapy Visit Comments Patient Comments Pt anxious of mobilizing due to pain. Improved mobiltiy after returned post lidocaine patch. Therapy Pain Assessment Pain When Pain Assessed During Mobility Pain Present Pain Present Pain Reported Location Left Hip Intensity 9 Scale Used 3/10 resting, 9/10 with mobility Description Acute,With Movement Pain Behaviors Calling Out,Facial Grimacing, Moaning,Restlessness,Wincing Pain Management Techniques Distraction,Modification of Treatment,Re-positioning, Timing of Activity with Medications M4 PT-IP Mobility and Gait Start: 04/18/22 15:22 Freq: Status: Active Protocol: Document 04/21/22 13:55 SP (Rec: 04/21/22 17:38 SP [id number]) PT-Bed Mobility Assessment Supine to Sit Supine to Sit Maximum Assistance,2 Person Assistance,Head of Bed Elevated,Bedrails Sit to Supine Sit to Supine Total Assistance,2 Person Assistance Scooting Scooting to Edge of Bed Maximum Assistance,Dependent Scooting Up and Down in Bed Dependent PT-Transfer Assessment Sit to and From Stand Sit to and from Stand Maximum Assistance,2 Person Assistance,Use of Upper Extremities Equipment Transfer Assistive Device Gait Belt,Front Wheeled Walker Orthotic/Prosthetic Devices or Brace: No Transfers Transfer Destination Bed Transfer Technique Sit<>Stand EOB, lateral scoot up EOB Transfer Ability Level of Assist Maximum Assistance,2 Person Assistance,Use of Upper Extremities Comments Mobility Comments Initial entery room: pt increase pain with LE support AAROM, superior scoot up in bed and LR for bed pad reposition. RESEARCH CONSULTANT instructed pre mobility ex: BLE ex AP AROM/ heel slides Max A LLE, Mod A RLE and support to EOB. Dependent lateral scoot then Max A trunk righting to sit and scoot to EOB via transfer pad support. Sitting EOB Mod A >close SBA. Sit<>stand Max A x2 w/ FWW x3 (vcs for proper hand placement push from bed rail/reach back slow descent), maintain standing w/ FWW 15s, 30s, 2 min (with increase WBOS and shoes donned) Mod Ax2 RESEARCH CONSULTANT/ OT. Pt improved tolerance ableto complete brief change and total assist hygiene care in standing. Pt unable to reposition feet in standing to progress transfer. Lateral scoot up EOB Max A x2 , support of transfer pad support required. Sit>supine Max A x2 (trunk and LE support ). Scoot up in bed dependent x2 via pad and bed in [facility]. Pt elevated, had call light and all needs in reach, bed alarmed before left. Gait Assessment Comments Gait Comments STS at EOB w/FWW, lateral scoot up EOB Max A x2. PT-Balance Assessment Sitting Balance and Reactions Static Sitting Balance Ability Fair Dynamic Sitting Balance Ability Poor Standing Balance and Reactions Static Standing Balance Ability Poor Dynamic Standing Balance Ability Poor Device Used FWW M5 PT-IP Objective Assessments Start: 04/18/22 15:22 Freq: Status: Active Protocol: Document 04/18/22 15:50 [facility] (Rec: 04/18/22 16:01 [facility] [id number]) Orientation Orientation/Cognition Level of Alertness Alert Language Function Ability No Deficits Noted Safety Awareness Understands Safety Issues Memory Description No Deficits Noted Gross Range of Motion Lower Extremity ROM Assessment Left Impaired Impairments will not actively move LLE nad reluctant to let PT do any L hip PROM Strength Lower Extremity Strength Assessment Bilaterally Impaired Hip L grossly 2-/5 d/t pain and R grossly 3+/5 Knee L grossly 2-/5 d/t pain and R grossly 3+/5 Ankle WFL M6 PT-IP Treatment Start: 04/18/22 15:22 Freq: Status: Active Protocol: Document 04/21/22 13:55 SP (Rec: 04/21/22 17:38 SP [id number]) Physical Therapy Treatment Exercises Exercises Ankle Pumps,Heel Slides Knee ROM Measurement 40 deg flexion AAROM L>RLE Education Education Provided Safety M7 PT-IP Assessment and Plan Start: 04/18/22 15:22 Freq: Status: Active Protocol: Document 04/21/22 13:55 SP (Rec: 04/21/22 17:38 SP [id number]) PT Summary Assessment and Plan Potential Rehabilitation Potential Good Status of Condition at Evaluation Evolving Summary Impairments Pain,ROM,Strength,Balance,Bed Mobility,Transfers,Gait, Activity Tolerance Progress Towards Goals Progressing Toward Goals,Slow Progress due to Pain,Slow Progress due to Activity Tolerance Assessment Summary Pt continues to have significant L hip pain still that limits her mobility. She had improvement Max A bed mob, Max>Mod A x2 STS from EOB post pain patch support was unable to progress mobility out of bed in standing. Pt will need SNF to increase strengthening and functional mobility progress. Will continue to assess progress. Goals Bed Mobility Goal Moderate Assistance Transfer Goal Moderate Assistance Gait Goal Minimal Assistance,Front Wheel Walker Gait Distance 40ft Days to Meet Goals 8 Frequency of Treatment Frequency Of Treatment Once a Day Treatment Plan Physical Therapy Treatment Plan Bed Mobility Training,Transfer Training,Gait Training, Therapeutic Exercise,Balance Retraining,Hot or Cold Pack, Neuromuscular Re-ed,Manual Therapy Other Recommendations and Next Treatment check premedicated, pre Focus mobility LE ex, bed mob, standing tolerance, transfers if able. Weight Bearing Status Weight Bearing Status Weight Bear as Tolerated Recommendations To Nursing Amount of Assist Needed 2 Person Assist,Mechanical Lift,Power Sit-Stand Discharge Recommendations PT Discharge Recommendations SNF Rehab Transportation Needs at Discharge Wheelchair/Cabulance
--- NOTE | 2022-04-21 14:25 | OT.IP.TRT ---
Current Diagnoses Other pulmonary embolism without acute cor pulmonale (04/19/22) Occupational Therapy Treatment Note M2 OT-IP Current Condition Start: 04/20/22 13:21 Freq: Status: Active Protocol: Document 04/20/22 11:35 [facility] (Rec: 04/20/22 13:38 [facility] [id number]) Occupational Therapy Current Condition Current Condition Evaluation Date 04/20/22 Treatment Diagnosis GLF, BPE, SOB, weakness Diagnosis Onset Date 04/19/22 M3 OT- IP Subjective and Pain Start: 04/20/22 13:21 Freq: Status: Active Protocol: Document 04/21/22 11:38 [facility] (Rec: 04/21/22 14:48 [facility] [id number]) OT- Subjective Occupational Therapy Visit Type Type Treatment Note Visit Start Time 11:38 Visit Stop Time 14:25 Total Visit Minutes 44 Occupational Therapy Visit Comments Patient Comments Pt wanting to try to get up in AM but having too much pain and therefore able to see in the PM with WEIGHT TESTER. Patient/Caregiver Goals TO go home. OT Pain Assessment Pain When Pain Assessed During Mobility Pain Present Pain Present Pain Reported M4 OT- IP ADL's Start: 04/20/22 13:21 Freq: Status: Active Protocol: Document 04/21/22 11:38 [facility] (Rec: 04/21/22 14:48 [facility] [id number]) OT ADL-Grooming Comments OT Grooming Comments Not performed. OT ADL-Oral Care Comments Oral Care Comments Not performed. OT ADL-Dressing General Eval Lower Body Dressing Ability Total Assistance Comments OT Dressing Comments dependent for socks and slip on shoes OT ADL-Toileting General Evaluation Toileting Ability Total Assistance Comments OT Toileting Comments Purewick in place, MAX A x1 to help change on her brief with WEIGHT TESTER present with assist to stand the pt with FWW. OT ADL-Bathing Comments OT Bathing Comments Sponge bath more appropriate at this time. M5 OT- IP IADL's Start: 04/20/22 13:21 Freq: Status: Active Protocol: Document 04/20/22 11:35 [facility] (Rec: 04/20/22 13:38 [facility] [id number]) OT-Instrumental Activities of Daily Living Home Safety Awareness Awareness of Need for Assistance at Home Good Awareness Money Management Money Management Caregiver Provides Assistance Meal Preparation Meal Preparation Caregiver Provides Assist Child & Adolescent Psychiatrist Child & Adolescent Psychiatrist Caregiver Provides Assist M6 OT- IP Functional Cognition Start: 04/20/22 13:21 Freq: Status: Active Protocol: Document 04/21/22 11:38 [facility] (Rec: 04/21/22 14:48 [facility] [id number]) Cognitive Factors Limiting Selfcare Function Cognitive Comments Cognitive Assessment Comments Pt needing encouragement to get up and cooperative as she realized that her pain is not too bad and able to try to move at this time. M7 OT- IP Mobility and Balance Start: 04/20/22 13:21 Freq: Status: Active Protocol: Document 04/21/22 11:38 [facility] (Rec: 04/21/22 14:48 [facility] [id number]) OT- Bed Mobility Assessment Rolling Level of Assistance Maximum Assistance,1 Person Assistance Supine to Sit Supine to Sit Assist Maximum Assistance,2 Person Assistance Sit to Supine Sit to Supine Assist Total Assistance,2 Person Assistance Scooting Scooting Up and Down in Bed Maximum Assistance,2 Person Assistance OT-Transfer Assessment Sit to and From Stand Sit to and from Stand Moderate Assistance,2 Person Assistance Comments Mobility Comments Pt able to assist to move her LLE and RLE better today with assist. Pt still needing MAXA x2 assist to help move her legs to the edge of the bed, heavy use of green pad to more her hips to the edge of the bed, MODA XA 2 to stand. Pt unable to take any steps. Able to scoot up in the bed with MAX AX 1 and another person to assist to pull on the green pad. OT- Balance Assessment Sitting Balance and Reactions Static Sitting Balance Ability Fair Standing Balance and Reactions Static Standing Balance Ability Poor M8 OT- IP Objective Assessments Start: 04/20/22 13:21 Freq: Status: Active Protocol: Document 04/20/22 11:35 [facility] (Rec: 04/20/22 13:38 [facility] [id number]) OT Gross Range of Motion Upper Extremity Range of Motion Assessment Bilaterally Impaired OT Strength Comments Strength Comments Did not formally assess at least 3-/5 at this time. OT-Muscle Tone Assessment Muscle Tone WNL Yes M9 OT- IP Assessment and Plan Start: 04/20/22 13:21 Freq: Status: Active Protocol: Document 04/21/22 11:38 [facility] (Rec: 04/21/22 14:48 [facility] [id number]) OT Summary Assessment and Plan Potential Rehabilitation Potential Good Analytic Complexity at Evaluation Moderate Summary OT Impairments Pain,Range of Motion,Strength, Balance,Coordination, Functional Mobility,Dressing, Toileting,Bathing,Toilet Transfers,Shower Transfers, Activity Tolerance Progress Towards Goals Slow Progress due to Pain,Slow Progress due to Activity Tolerance Assessment Summary Pt able to get to the edge of the bed with HOB up and MAX AX 2. Pt able to come to stand several times with MODAX2 to FWW. Pt still not at one person assist level and will benefit from skilled rehab prior to going home. Goals Grooming Goal Standby Assistance Dressing Goal Moderate Assistance Toileting Goal Moderate Assistance Bathing Goal Moderate Assistance Toilet Transfer Goal Moderate Assistance Shower Transfer Goal Moderate Assistance Days to Meet Goals 44 Frequency of Treatment Frequency Of Treatment Once a Day Treatment Plan OT Treatment Plan ADL Training,Functional Mobility,Patient/Family Education,Discharge Planning Other Treatment Recommendations and Next Transfer to [facility] with MAX AX 2 Treatment Focus with FWW. Discharge Recommendations OT Discharge Recommendations SNF Rehab Transportation Needs at Discharge Wheelchair/Cabulance
[2022-04-21 18:30] LABS: COVID19 -Nasal RAPID Negative (Negative)
[2022-04-21 19:38] VITALS: BP 129/56; PULSE 89; RESP 18; TEMP 36.6; O2SAT 94
[2022-04-21] MEDS: SENNOSIDES 8.6 MG TABLET 17.2 MG PO (20:19)
[2022-04-21] MEDS: SERTRALINE 50 MG TABLET 100 MG PO (20:19)
[2022-04-22 00:18] VITALS: BP 136/57; PULSE 88; RESP 17; TEMP 36.6; O2SAT 92
--- NOTE | 2022-04-22 04:19 | PC.NURSE ---
Pt is AxOx4, needs 2 person assistance and cooperative. VSS, pt c/o pain on her back and recieved PRN PO [place] x1. Otherwise, no problem. Dressing on R hand changed. Continue monitor.
[2022-04-22] MEDS: HYDROCODONE/ACET 5/325 TABLET 1 TAB PO (04:33)
--- NOTE | 2022-04-22 04:34 | PC.NURSE ---
Pt is AxOx4, needs 1 person assistance and cooperative. VSS, pt had drank Golytely and had many loose stools; it was mostly watery and black color. Pt c/o arthritic pain on her joint and recieved PRN Oxy around midnight with good effect. Otherwise, no problem identified. Continue monitor.
[2022-04-22 04:51] VITALS: BP 126/43; PULSE 76; RESP 16; TEMP 36.2; O2SAT 97
[2022-04-22 08:30] VITALS: BP 136/52; PULSE 80; RESP 16; TEMP 36.2; O2SAT 93
--- NOTE | 2022-04-22 08:46 | CM.DPC ---
DCP Cont: Spoke with Ivett @ and she is scheduling an 1130 transport time today 04/22. DCP to send PASRR, Rx's, and med list when available. DCP verbalized this to RN and MD. Pt aware that she needs payment upon arrival. Pt verbalizes understanding. Iesha Stanley, GUILLERMINA/CHICAP
[2022-04-22] MEDS: LIDOCAINE PATCH 1 EACH ADH..PATCH TOP (09:05)
[2022-04-22] MEDS: FOLIC ACID 1 MG TABLET PO (09:05)
[2022-04-22] MEDS: ENOXAPARIN 40 MG/0.4 ML SYRINGE SUBCUT (09:05)
[2022-04-22] MEDS: DOCUSATE 100 MG CAPSULE PO (09:05)
[2022-04-22] MEDS: FAMOTIDINE 20 MG TABLET PO (09:05)
[2022-04-22] MEDS: SODIUM CHLORIDE 0.9% FLUSH 10 ML IV (09:16)
--- NOTE | 2022-04-22 11:14 | PC.NURSE ---
Attempted to call RN for report [facility] at phone number [phone] as instructed by JAN.
--- NOTE | 2022-04-22 11:57 | P.DS_ITS ---
History of Present Illness History of Present Illness Date Patient Seen: 04/22/22 Chief complaint: Fall Narrative: Per history and physical: Bailey King is an 87-year-old female who resides at [facility] has history of rheumatoid arthritis,osteoarthritis, osteopenia, global weakness, unstable gait uses a walker, and has frequent falls.? Patient initially presented to the ED on 04/18 at 7:51 a.m.after a ground level fall 2 nights ago.? She says she was using her walker in the shower she had assistance she went to kick a trash can when she landed on her left hip.? She has been ambulatory but it is quite painful for her.? She denies hitting her head no loss of consciousness.? She is not on any antiplatelet or anticoagulation medication.? She has minimal neck pain.? No shortness of breath dizziness lightheadedness chest pain or palpitations.? She says every time she tries to walk now it is excruciating and she is unable to bear weight.? She previously had hip replacement.? The plan had been to keep the patient in the ED department for PT OT evaluation and transfer to SNF.? At approximately 11:55 p.m. on 04/18 the patient began to have increasing shortness of breath desaturating to 88% on room air, which time the ED department applied oxygen, labs were unremarkable with the exception of a D- dimer 1039-patient was sent for a CTA which demonstrated bilateral pulmonary emb olus. On admit patient denies chest pain, shortness breath, cough, fever, body aches, chills, abdominal pain, nausea, vomiting, diarrhea, constipation, hematuria hematemesis, melena, and is eating in no distress this time.? Patient does note that she did have a blood clot in her legs following venous surgery approximately 20 years ago, has had no further issues and has not been on any medication and has no cardiac history.? Patient is currently stable afebrile temp 98.2?, 115/54, HR 83, R 18, saturating 98% on 2 L nasal cannula in the ED. ED initiated Lovenox 1 milligram/kilogram 75 mg b.i.d. CBC CMP and liver panel predominantly unremarkable urinalysis, respiratory panel, troponin all WNL chest x-ray demonstrated no acute cardiopulmonary process, pelvic CT negative for acute process or fracture, left hip x-ray demonstrated arthroplasty, left femur ORIF, knee arthroplasty, chronic appreciated fracture distal left femur.? Due to patient's chronic unstable gait frequent falls she is significantly sedentary.? Patient admitted for bilateral pulmonary embolus with shortness of breath sec ondary to ground level fall left hip injury due to unstable gait global weakness and frequent falls. Upon over-read of the CT by the daytime radiologist, PE was subsequently ruled out. Anticoagulation was discontinued. Discharge Providers Provider Date of admission: 04/19/22 05:35 Discharge Date: 04/22/22 Primary care physician: Iris Munguia DO Consults: 04/18/22 09:38 Consult to Physical Therapy Evaluate & Treat Comment: left hip pain not broken Physician Instructions: Evaluate and Treat 04/18/22 17:00 Consult to STUDY ASSISTANT - Clinical Educator Stat Comment: 04/19/22 05:59 Consult to Dietitian, Adult Routine Comment: Reason For Exam: BMI 27.4 04/19/22 06:00 Consult to Occupational Therapy Evaluate & Treat Comment: Physician Instructions: Evaluate and treat Consult to Physical Therapy Evaluate & Treat Comment: Physician Instructions: Evaluate and Treat 04/19/22 06:01 Consult to STUDY ASSISTANT - Clinical Educator Routine Comment: will need SNF placement Discharge provider: Ilsa Montgomery MD Summary Hospital Course Discharge Diagnosis: 1. Ground level fall, lumbosacral sprain/hamstring injury 2. Rheumatoid arthritis, chronic, stable 3. Osteopenia 4. Remote thromboembolism, no acute Hospital Course: Patient presented to the emergency department after a ground level fall. She resides at a local assisted living facility. She would had a fall 2 days prior to admission as well. Her pain was significant and she would difficulty with ambulating. She would also been complaining of some shortness of breath and was noted to have some mild hypoxia in room air. Labs were sent off which included an elevated D-dimer. CT pulmonary angiogram was performed which initially was read as having a small pulmonary embolus. She was initiated on anticoagulation. However, by the following morning, radiology over read the CT and determined there was no evidence for pulmonary embolism. Anticoagulation was subsequently discontinued. Patient had good improvement of her pain overall and felt she had particular improvement with lidocaine patches. Patient did work with Physical therapy and Occupational therapy who recommended group home facility at discharge for rehab. Saturations were stable in room air. She would no evidence of pulmonary process on either CT or chest x-ray, raising the likelihood that her hypoxia was secondary to atelectasis rather than an acute respiratory condition. On the date of discharge, patient was in stable condition. Upon discharge from group home facility, she will return to [facility] assisted living facility. Status at Discharge Cognitive/behavioral status at discharge: at baseline, oriented Time Spent with Patient Time spent: Less than 30 minutes Exam Vital Signs (past 8 hours): - 04/22/22 04:51 04/22/22 08:30 Temperature 97.2 F L 97.2 F L Pulse Rate 76 80 Respiratory Rate 16 16 Blood Pressure 126/43 L 136/52 L Pulse Oximetry 97 93 Oxygen Flow Rate 0 0 Fraction of Inspired Oxygen 24 SaO2/FiO2 Ratio 400 Oxygen Delivery Method Room Air Oxygen Flow Rate 0 Narrative Exam Narrative: GEN: Alert and oriented x 3, NAD HEENT:NC, Face symmetric CHEST: Respiratory excursions symmetric, CTAB CV: RRR, no M/R/G ABD: Soft, NT/ND, BT present in all 4 quadrants, no organomegaly or masses EXTR: warm, well perfused, no C/C/E SKIN: warm and dry, no rash NEURO: Alert and oriented x 3, nonfocal Objective Labs Result Diagrams: 04/20/22 06:44 04/20/22 06:44 Labs: Laboratory Results - last 24 hr 04/21/22 17:49 SARS-CoV-2 (PCR) Negative [facility] Medical History Anemia (~2020) Ankle pain (~2019) Anxiety (~2018) Cataracts, bilateral Chicken pox Fall at home Foot pain Fractures Gait instability Hearing loss (~2012) Measles Mumps Osteoarthritis Osteopenia Restless leg syndrome (~2020) Retinal detachment (~2004) Rheumatoid arthritis Shoulder pain Uses walker Vertigo Weakness Surgical History Anesthesia Fracture of upper leg History of ankle surgery 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 You will continue working with physical and occupational therapy at [facility]. I have also started you back on methotrexate for your rheumatoid arthritis. 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 I certify the postop hospital group home care is medically necessary on a continuing basis for any conditions for which he/ she received care during this hospitalization.: Yes The receiving facility has agreed to accept transfer and provide medical treatment.: Yes Discharge orders & Medications Prescriptions: New sennosides [senna] 8.6 mg Tablet 17.2 mg PO BEDTIME Qty: 60 0RF hydrocodone-acetaminophen 5-325 mg Tablet 1 tab PO Q4H PRN (Reason: Pain, Moderate (4-10) Qty: 30 0RF methotrexate sodium 2.5 mg Tablet 7.5 mg PO WEEKLY Qty: 12 0RF docusate sodium 100 mg Capsule 100 mg PO BID Qty: 60 0RF lidocaine [Lidoderm] 5 % adhesive patch,medicated 1 patch topical DAILY Qty: 30 0RF Rx Instructions: leave on most painful area for up to 12 hrs acetaminophen 325 mg Tablet 650 mg PO Q6H PRN (Reason: Fever/Mild Pain (1-3)) Qty: 30 0RF Continued famotidine 20 mg tablet 20 mg PO QAM folic acid 1 mg tablet 1 mg PO QAM polyethylene glycol 3350 17 gram/dose powder 17 g PO DAILY PRN (Reason: Constipation) sertraline 100 mg tablet 100 mg PO BEDTIME ascorbic acid (vitamin C) 250 mg tablet 250 mg PO QAM cholecalciferol (vitamin D3) 50 mcg (2,000 unit) capsule 50 mcg PO DAILY Discontinued acetaminophen 325 mg capsule 650 mg PO Q4H PRN (Reason: Pain (Scale Score 4-6)) Medication counseling provided by Pharmacist: No Follow up/Referrals: Iris Munguia DO [Primary Care Provider] - Discharge Health Status Multidrug resistant organism: No MDRO Diet/Activity/Treatments Diet: Diet as Tolerated Liquid consistency: Normal/Thin Food texture: Regular Activity: As tolerated, currently 2 person max assist, gait belt, FWW Oxygen: N/A Special Rehabilitation Services Reason for rehabilitation: Recovery r/t decondition Rehab type: Physical therapy and Occupational therapy Visit Report/Discharge Packet Stand Alone Forms: Patient Portal/API Discharge Data Primary Care Provider: Iris Munguia Attending Provider: Dipika Sanchez VTE Deep Vein Thrombosis/Pulmonary Embolism Present on Admission: Yes
== END 2022-04-22 12:00 ==
LOC: ED 04-19 05:28 → AC 04-19 07:23
PROVIDERS: Emergency Medicine; Internal Medicine; Admitting Provider Nurse Practitioner Family; Emergency Provider Emergency Medicine; PCP Family Medicine; Referring Provider Emergency Medicine; Visit Provider Nurse Practitioner Family
DX: S33.5XXA Sprain of ligaments of lumbar spine, initial encounter (principal); M25.552 Pain in left hip; W18.39XA Other fall on same level, initial encounter; Y92.091 Bathroom in other non-institutional residence as the place of occurrence of the external cause; R53.1 Weakness; M06.9 Rheumatoid arthritis, unspecified; M19.90 Unspecified osteoarthritis, unspecified site; R26.89 Other abnormalities of gait and mobility; M85.80 Other specified disorders of bone density and structure, unspecified site; E66.3 Overweight; Z91.81 History of falling; Z20.822 Contact with and (suspected) exposure to COVID-19
CPT/HCPCS: 36415; 71045; 71275; 72131; 72192; 73502; 80048; 80053; 81001; 82550; 83735; 83880; 84484; 85025; 85379; 85610; 87633; 87635; 93005; 93970; 96372; 96374; 96375; 97163; 97166; 97530; 97535; 99285; C9803; G0378; A9270; J1650; J2270; J2405; J8610; Q9967